=== PATIENT | male | born 1960 | race Caucasian/White ===

== ENCOUNTER → 2021-07-08 09:32 | Outpatient (BNVA) | payer BC, SELFPAY | PROVIDERS: PCP Internal Medicine; Visit Provider Urology | DX: R97.20 Elevated prostate specific antigen [PSA] (principal) ==

== ENCOUNTER → 2021-09-29 15:20 | Outpatient (BNVA) | payer BC, SELFPAY | PROVIDERS: PCP Internal Medicine; Visit Provider Urology ==

== ENCOUNTER 2021-11-16 11:32 | Outpatient (REF) | payer BC, SELFPAY ==
[2021-11-16 11:37] VITALS: BMI 25.1
[2021-11-16 11:38] VITALS: BP 144/89; PULSE 71; RESP 16; TEMP 36.4; O2SAT 97
--- NOTE | 2021-11-16 12:35 | W.PM.OPN ---
Operative Note Operative Note Date of Service: 11/16/21 Narrative: Preoperative diagnosis: Elevated PSA Postoperative diagnosis: Elevated PSA Procedure: 1. transrectal ultrasound measurement of prostate 2. transrectal ultrasound-guided pudendal nerve block 3. transrectal ultrasound-guided prostate biopsy 12 core Surgeon: Dr. Ariel Martel Anesthetic: Local Indications for procedure: Elevated PSA - 3.6 with high risk Urine DNA test Procedure: After informed consent was verified, the patient was brought into the procedure area and lay left-hand side down on the table. Patient identity confirmed. Perioperative antibiotics confirmed. Iodine 10cc with Gel was placed per rectum Ultrasound probe was placed per rectum The prostate was measured in 3 dimensions Total volume equals 45 gm There were no cystic structures and no calcifications noted and the prostate was homogeneous in nature A ultrasound-guided pudendal nerve block was performed using 10 cc of 1% lidocaine. 8 cc was placed at the base and 2 cc of the apex. A 12 core biopsy was performed with 6 cores each side. Two cores were taken at the apex, mid and base. Cores were spaced between lateral and medial. He tolerated the procedure well. Was able to ambulate to bathroom after 5 minutes. Printed instructions regarding antibiotic use and common side effects such as low-grade temperature and bleeding were given Pathology: 12 core prostate biopsy.
[2021-11-16 12:38] VITALS: BP 126/81; PULSE 68; RESP 16; O2SAT 96
== END 2021-11-16 11:33 | disposition home or self-care (01) ==
LOC: HO.MS 11:32
PROVIDERS: PCP Internal Medicine; Visit Provider Urology
PROC: (CPT 55700; principal; 2021-11-16 12:00)
DX: C61 Malignant neoplasm of prostate (principal); R97.20 Elevated prostate specific antigen [PSA]
CPT/HCPCS: 55700; 76942; 88305; 88344

== ENCOUNTER → 2021-11-23 08:54 | Outpatient (BNVA) | payer BC, SELFPAY | PROVIDERS: PCP Internal Medicine; Visit Provider Urology ==

== ENCOUNTER → 2022-01-06 08:39 | Outpatient (BNVA) | payer BC, SELFPAY | PROVIDERS: PCP Internal Medicine; Visit Provider Urology ==

== ENCOUNTER → 2022-12-07 13:21 | Outpatient (BNVA) | payer BC, SELFPAY | PROVIDERS: PCP Internal Medicine; Visit Provider Urology | DX: Z13.89 Encounter for screening for other disorder (principal) ==

== ENCOUNTER → 2023-02-08 11:19 | Outpatient (BNVA) | payer BC, SELFPAY | PROVIDERS: PCP Internal Medicine; Visit Provider Urology | DX: Z13.89 Encounter for screening for other disorder (principal) ==

== ENCOUNTER → 2023-04-20 11:49 | Outpatient (BNVA) | payer MEDICARE, BC, SELFPAY | PROVIDERS: PCP Internal Medicine; Visit Provider Urology | DX: C61 Malignant neoplasm of prostate (principal) | CPT/HCPCS: Q3014 ==

== ENCOUNTER 2023-05-01 07:43 | Day surgery (SDC) | payer MEDICARE, BC, SELFPAY ==
[2023-04-26 14:31] VITALS: BMI 26.5
--- NOTE | 2023-04-28 10:41 | HO.ANESPROP2 ---
Documented by User: Mariana Donato NP 04/28/23 10:42 HPI - Anesthesia Eval Consult details Narrative: 63yo M for Targeted Prostate Needle Biopsy PMFSH Active Problems Active Problems: All Active Problems (Updated 04/26/23 @ 14:35 by Ximena Judd, RN) Prostate cancer (Acute) Benign prostatic hyperplasia without lower urinary tract symptoms (Acute) Elevated PSA (Acute) Past Medical History Medical History Benign prostatic hyperplasia without lower urinary tract symptoms Elevated cholesterol Elevated PSA Incomplete emptying of bladder Prostate cancer Weak urinary stream Surgical History Surgical History History of esophagogastroduodenoscopy (EGD) History of surgical removal of pilonidal cyst Hx of hernia repair Hx of prostate biopsy Social History Social History Patient Tobacco Use Status: Never used Tobacco Use of substances other than those prescribed or required for medical reasons: No Are you DNR?: No Advance Directives: No Advance Directives Information Provided: Yes Meds Allergies Allergy/AdvReac Type Severity Reaction Status Date / Time No Known Allergies Allergy Verified 04/20/23 11:50 Home Medications Medication Instructions Recorded Confirmed Last Taken Type atorvastatin 40 mg tablet 40 mg PO DAILY 12/07/22 04/26/23 Unknown History Exam Exam Date and Time: April 28, 2023 1041 Height,Weight and Vital Signs: Height 5 ft 10 in Weight 83.915 kg Assessment and Plan Assessment Anesthesia Assessment: Chart Reviewed Documented by User: Gina Quintanilla MD 05/01/23 10:02 PMFSH Active Problems Active Problems: All Active Problems (Updated 05/01/23 @ 09:31 by Gina Quintanilla MD) Prostate cancer (Acute) Benign prostatic hyperplasia without lower urinary tract symptoms (Acute) Elevated PSA (Acute) Past Medical History Medical History Benign prostatic hyperplasia without lower urinary tract symptoms Elevated cholesterol Elevated PSA Incomplete emptying of bladder Prostate cancer Weak urinary stream Family History Family history of problems with anesthesia: No Surgical History Surgical History History of esophagogastroduodenoscopy (EGD) History of surgical removal of pilonidal cyst Hx of hernia repair Hx of prostate biopsy History of Problems with Anesthesia: No Social History Social History Patient Tobacco Use Status: Never used Tobacco Use of substances other than those prescribed or required for medical reasons: No Are you DNR?: No Advance Directives: No Advance Directives Information Provided: Yes Meds Allergies Allergy/AdvReac Type Severity Reaction Status Date / Time No Known Allergies Allergy Verified 04/20/23 11:50 Home Medications Medication Instructions Recorded Confirmed Last Taken Type atorvastatin 40 mg tablet 40 mg PO DAILY 12/07/22 04/26/23 Unknown History Exam Height,Weight and Vital Signs: Height 5 ft 10 in Weight 83.915 kg Vital Signs Temp Pulse Resp BP Pulse Ox O2 Del Method 05/01/23 08:09 97.4 F 79 18 148/83 H 95 Room Air Airway Mallampati Class: III (Small mouth opening ) TM Dist: >3cm Neck ROM: Full Loose/Missing/Broken Teeth: No (Denies broken, loose, missing teeth) Heart: RRR Lungs: CTAB Assessment and Plan Assessment Anesthesia Assessment: Anesthesia Plan Discussed Final Anesthetic Review Family History of Problems with Anesthesia: No History of Problems with Anesthesia: No NPO: Yes ASA Class: II Final Preanesthetic Review: No Changes in Pt Med Stat, Meds/Allgs Chart Reviewed, Consent Obtained/Reviewed and Anes Risks/Benef Reviewed Patient Risk: Low Procedure Risk: Low Assessment/Block/Sedation in SS: Assess/Block/Sedation-SS Anesthetic Plan Anesthetic Plan: GA Disposition: Standard PACU
[2023-05-01 08:00] VITALS: BMI 25.8
[2023-05-01 08:09] VITALS: BP 148/83; PULSE 79; RESP 18; TEMP 36.3; O2SAT 95
[2023-05-01] MEDS: Lactated Ringers 1,000 ML 100 ML IVCONT (08:22)
--- NOTE | 2023-05-01 09:55 | MHC.SHP ---
Pre-Procedural Eval Section A Date of Service: 05/01/23 The patient is an INPATIENT: No Changes since office visit: No Cold of Flu in the past 2 weeks, No New Medical Problems, No Changes in Medication and No Patient answered all questions The History & Physical has been completed within 30 days and I have reviewed it.: No Section B Chief Complaint: Prostate cancer Details of Present Illness: low-grade prostate cancer, staging Relevant Family History (Specify if Yes): No Relevant Social History: None Present Medications: see Short Stay Collaborative assessment Medical History: No relevant PMH History of Previous Operations: Relevant previous surgery/procedure and date(s) Allergies: Allergies Allergy/AdvReac Type Severity Reaction Status Date / Time No Known Allergies Allergy Verified 04/20/23 11:50 Review of Systems Sugical H&P ROS: Negative: Constitution, Cardiovascular, Respiratory, Neurological, Psychiatric, Hem-Onc, Allergic/Immunologic, Gastrointestinal, Genitourinary, Musculoskeletal, Integumentary, Endocrine and Eyes/Ears/Nose/Throat Exam Surgical H&P Exam: Normal: HEENT, Normal: Heart, Normal: Lungs, Normal: Extremities, Normal: Abdomen, Normal: Skin and Normal: Neurological Plan Diagnosis/Plan: Unchanged ( targeted prostate biopsy) I have reviewed the history and physical and performed a pertinent physical examination on my patient. No changes have occurred unless specified. Time Spent With Patient Time: Total time managing care of this patient today ____ minutes.
[2023-05-01] MEDS: levoFLOXacin 500 MG TABLET PO (09:59)
[2023-05-01 11:01] VITALS: BP 130/75; PULSE 68; RESP 14; TEMP 36.2; O2SAT 96
--- NOTE | 2023-05-01 11:02 | P.OP_ITS ---
Operative Note Operative Note Date of Service: 05/01/23 Narrative: Preoperative diagnosis: Prostate Cancer Postoperative diagnosis: Prostate Cancer Procedure: 2. transrectal ultrasound-guided pudendal nerve block 3. MRI-US fusion image registration performed 3. transperineal ultrasound-guided prostate biopsy 16 core including targets Surgeon: Dr. Ariel Martel Anesthetic: Sedation plus local Indications for procedure: Prostate Cancer - low-grade, low volume Procedure: After informed consent was verified, the patient was brought into the procedure area. Patient identity confirmed. Perioperative antibiotics confirmed. Safety pause time out performed. Anesthesia performed per protocol Ultrasound probe was placed per rectum Focalis software and hardware platform used An ultrasound-guided pudendal nerve block was performed using 10 cc of 1% lidocaine. 8 cc was placed at the base and 2 cc of the apex. Perineal injection of local. Ultrasound placement was made with grid calibration for height and prostate diameter in both the transverse and longitudinal planes. Once grid calibration was confirmed ultrasound acquisition was performed in the transverse fashion. Three dimensional ultrasound model was created. The planned needle targeting based on prior acquisition of MRI imaging was overlaid on the ultrasound images and targets confirmed through ultrasound review. Based on pre -planning evaluation 16 targets had been identified. These included for targets of PiRADs 3 right prostate mid anterior identified lesion/s.. He tolerated the procedure well. Was transferred to stable condition in the PACU. Printed instructions regarding antibiotic use and common side effects such as lo w-grade temperature, potential infection and bleeding were given Pathology: 16 core prostate biopsy CPT 84685 Modifier 22 for complexity of planning and procedure execution
[2023-05-01 11:06] VITALS: BP 131/79; PULSE 67; RESP 14; O2SAT 97
[2023-05-01 11:11] VITALS: BP 127/72; PULSE 61; RESP 14; O2SAT 97
[2023-05-01 11:16] VITALS: BP 127/77; PULSE 62; RESP 14; O2SAT 97
[2023-05-01 11:31] VITALS: BP 120/77; PULSE 61; RESP 14; TEMP 36.2; O2SAT 97
== END 2023-05-01 12:23 | disposition home or self-care (01) ==
PROVIDERS: PCP Pediatrics; Visit Provider Urology
PROC: (CPT 55700; principal; 2023-05-01 09:50)
DX: C61 Malignant neoplasm of prostate (principal); R97.20 Elevated prostate specific antigen [PSA]; N40.1 Benign prostatic hyperplasia with lower urinary tract symptoms; R39.14 Feeling of incomplete bladder emptying; R39.12 Poor urinary stream
CPT/HCPCS: 55700; 88305; 88344; J2795; J3010

== ENCOUNTER 2023-05-26 09:48 | Outpatient (AMB) | payer MEDICARE, BC, SELFPAY ==
--- NOTE | 2023-05-26 09:53 | MHC.OFFVIS ---
Intake Intake Visit Reasons: post bx results Intake Note: Patient is present for Telephone Urology Med: Finasteride Antibiotic Allergy: NONE Blood Thinner:None Allergies No Known Allergies Allergy (Verified 04/20/23 11:50) HPI HPI Comments History of Present Illness Details Grayson Esteves is a very pleasant male. He is a patient of Dr. Paulson. He is seen for further evaluation of the following urologic issues. - Prostate Cancer Telemedicine Evaluation 15 min Consultation Doximity Carlos Video attempted Post biopsy followup Minimal change to volume of disease Grade group upgrade to grade group 2 favorable intermediate May continue surveillance due to low volume of overall disease Prostate Cancer - Low volume Low grade - Nov 2021, repeat biopsy 05/05 PSA 12/04 3.6, 05/04 4.4, 08/04 4.0, 12/05 4.April - US/MRI fusion biopsy [place] score:? 7 (3+4) (b 2.0) 6 (3+3) (E 2.0, d 3.0, C 1.5) Tumor quantitation: % of tissue involved: 5% PPF: SVI: PNI: NAD Prostate cancer diagnosed by Dr. Martel Nov 2021 PSA at dx - 3.6 - 45 g on ultrasound Pathologic stage T1c [employer] - 12/04 active surveillance score 3.6, DSM 1.9% November 2021 Histologic grade: [place] score: 3+3=6 Grade group: 1 Tumor quantitation:? Number cores positive: 4 - LBM 5%, RBL 40%, RBM 10%, RML 5% - 60%/1200% Total number of cores: 12? % of tissue involved: 5% of all tissue examined Periprostatic fat inv.: Not identified Seminal vesicle inv.:Not identified Perineural inv.:Not identified LVI:Not identified Prostate MRI - 01/04 40cc prostate - 1 cm lesion right base PiRADS 4, no evidence contention PFSH Medical History Benign prostatic hyperplasia without lower urinary tract symptoms Elevated cholesterol Elevated PSA Incomplete emptying of bladder Prostate cancer Weak urinary stream Surgical History History of esophagogastroduodenoscopy (EGD) History of surgical removal of pilonidal cyst Hx of hernia repair Hx of prostate biopsy Social History Patient Tobacco Use Status: Never used Tobacco Review of Systems Const All systems reviewed & are unremarkable except as noted in HPI and below Reports no additional complaints Resp Reports no additional complaints GI Reports no additional complaints Reports as per HPI Musc Reports no additional complaints Physical Exam Telemedicine evaluation Appropriate responses Regular breathing rate and rhythm HEENT Head: Yes normal to inspection Ears: hearing grossly normal bilaterally Eyes General: appearance normal, both eyes and all related structures Neck Neck: Yes normal visual inspection Chest Chest palpation & inspection: normal inspection of the chest Resp Effort & Inspection: normal respiratory effort and able to speak in complete sentences Assessment & Plan Assessment & Plan (1) Prostate cancer: Comment: Nov 2020 - Gl 3+3 - Prolaris Active Surveillance Code(s): C61 - Malignant neoplasm of prostate (2) Benign prostatic hyperplasia without lower urinary tract symptoms: Code(s): N40.0 - Benign prostatic hyperplasia without lower urinary tract symptoms Plan 6 month follow-up PSA Orders: Orders Prostate Specific Antigen 6 Months C61 - Malignant neoplasm of prostate Patient Instructions: Imaging studies, laboratory and physical exam results were discussed and reviewed in detail. No major barriers to patient understanding were identified. An opportunity to ask questions regarding the treatment plan was provided. All questions were answered. The patient expressed understanding and agreement with the above treatment plan. The patient is aware they should contact our office by phone for worsening of their current condition or the appearance of new urologic symptoms. Compliance is encouraged with any medications and followup testing that is ordered. It is a privilege to participate in the urologic care of your patient. If you have any questions or concerns regarding treatment for the above conditions, or other urologic issues, please do not hesitate to contact me. The office telephone contact is [phone]. This note is constructed using voice recognition software. While every effort has been made to ensure accuracy dental resident errors may have been included. Yours sincerely, Dr Ariel Martel MD, [facility] - Urology Providers of Expert, Compassionate Care for the Genitourinary System Telehealth Telehealth Location of provider rendering services: practice address Location of patient: address on file Patient Identification confirmed using: Name, : Yes Telehealth method: video Patient verbally consented to treatment: Yes Patient verbally consented to billing insurance company: Yes Patient informed of any privacy concerns related to visit: Yes Coding Level of Care Code Tele Est Pt Level 3 (94100) Diagnoses Prostate cancer C61 Benign prostatic hyperplasia without lower urinary tract symptoms N40.0
== END 2023-05-26 10:13 | disposition home or self-care (01) ==
LOC: HO.HUSH 09:48
PROVIDERS: PCP Pediatrics; Visit Provider Urology
DX: C61 Malignant neoplasm of prostate (principal); N40.0 Benign prostatic hyperplasia without lower urinary tract symptoms
CPT/HCPCS: 99213

== ENCOUNTER → 2023-05-26 09:48 | Outpatient (BNVA) | payer MEDICARE, BC, SELFPAY | PROVIDERS: PCP Pediatrics; Visit Provider Urology | DX: C61 Malignant neoplasm of prostate (principal); N40.0 Benign prostatic hyperplasia without lower urinary tract symptoms | CPT/HCPCS: Q3014 ==

== ENCOUNTER 2023-11-24 10:29 | Outpatient (AMB) | payer MEDICARE, BC, SELFPAY ==
--- NOTE | 2023-11-24 10:37 | A.OFFVIS_ITS ---
Intake Intake Visit Reasons: 6M/PSA(set) Intake Note: Patient is Present for Follow Up PSA Urology Medication: Finasteride Antibiotic Allergies: None Blood Thinners: None PVR: 16 Allergies No Known Allergies Allergy (Verified 04/20/23 11:50) HPI HPI Comments History of Present Illness Details Grayson Esteves is a very pleasant male. He is a patient of Dr. Paulson. He is seen for further evaluation of the following urologic issues. - Prostate Cancer Sudden PSA jump 12/06 8.6 Discussed possible causes Repeat PSA in 2-3 weeks If persistent elevation would move to prostate cancer therapy either external beam radiation or radical prostatectomy Prostate Cancer - Low volume Low grade - Nov 2021, repeat biopsy 05/05 PSA 12/04 3.6, 05/04 4.4, 08/04 4.0, 12/05 4.April - US/MRI fusion biopsy [place] score:? 7 (3+4) (b 2.0) 6 (3+3) (E 2.0, d 3.0, C 1.5) Tumor quantitation: % of tissue involved: 5% PPF: SVI: PNI: NAD Prostate cancer diagnosed by Dr. Martel Nov 2021 PSA at dx - 3.6 - 45 g on ultrasound Pathologic stage T1c [employer] - 12/04 active surveillance score 3.6, DSM 1.9% November 2021 Histologic grade: [place] score: 3+3=6 Grade group: 1 Tumor quantitation:? Number cores positive: 4 - LBM 5%, RBL 40%, RBM 10%, RML 5% - 60%/1200% Total number of cores: 12? % of tissue involved: 5% of all tissue examined Periprostatic fat inv.: Not identified Seminal vesicle inv.:Not identified Perineural inv.:Not identified LVI:Not identified Prostate MRI - 01/04 40cc prostate - 1 cm lesion right base PiRADS 4, no evidence contention [facility] Medical History Benign prostatic hyperplasia without lower urinary tract symptoms Elevated cholesterol Elevated PSA Incomplete emptying of bladder Prostate cancer Weak urinary stream Surgical History History of esophagogastroduodenoscopy (EGD) History of surgical removal of pilonidal cyst Hx of hernia repair Hx of prostate biopsy Social History Patient Tobacco Use Status: Never used Tobacco Review of Systems Const Denies chills and Denies fever(s) Card Reports no additional complaints and Denies syncope Resp Denies cough GI Denies abdominal pain and Denies heartburn Reports as per HPI and Denies change in libido Neuro Denies syncope Psych Denies change in libido Endo Denies change in libido Physical Exam Const General: cooperative, healthy appearing, comfortable and no acute distress Orientation/consciousness: patient oriented x3 HEENT Face and sinus: Yes normal facial exam Mouth: moist mucous membranes Neck Neck: Yes normal visual inspection, Yes full ROM and Yes trachea midline Chest Chest palpation & inspection: normal inspection of the chest Resp Effort & Inspection: normal respiratory effort, able to speak in complete sentences and no respiratory distress GI Inspection: Yes normal to inspection Back/Spine/Pelvis Cervical Spine: normal cervical lordosis Thoracic/Lumbar Spine: thoracic and lumbar spine normal to inspection Skin General skin exam: no rashes or lesions noted Neuro General: patient oriented x3, gait normal, tone normal and moves all extremities Extrem General: Yes normal to inspection and Yes capillary refill normal Office Procedures Post Void Residual Post Residual Void Post Void Residual (PVR): 16 [id number]-Virp Void Residual by ultrasound Assessment & Plan Assessment & Plan (1) Prostate cancer: Comment: Nov 2020 - Gl 3+3 - Prolaris Active Surveillance Code(s): C61 - Malignant neoplasm of prostate Plan Repeat PSA in 2-3 weeks Discussed possible treatment options prostate cancer Orders: Orders AMB Post Void Residual by ultrasound Today N40.0 - Benign prostatic hyperplasia without lower urinary tract symptoms PSA,Total (Free>4and<10) 2 Weeks C61 - Malignant neoplasm of prostate, E11.69 - Type 2 diabetes mellitus with other specified complication, N52.1 - Erectile dysfunction due to diseases classified elsewhere Patient Instructions: Imaging studies, laboratory and physical exam results were discussed and reviewed in detail. No major barriers to patient understanding were identified. An opportunity to ask questions regarding the treatment plan was provided. All questions were answered. The patient expressed understanding and agreement with the above treatment plan. The patient is aware they should contact our office by phone for worsening of their current condition or the appearance of new urologic symptoms. Compliance is encouraged with any medications and followup testing that is ordered. It is a privilege to participate in the urologic care of your patient. If you have any questions or concerns regarding treatment for the above conditions, or other urologic issues, please do not hesitate to contact me. The office telephone contact is [phone]. This note is constructed using voice recognition software. While every effort h as been made to ensure accuracy brush head maker errors may have been included. Yours sincerely, Dr Ariel Martel MD, [facility] - Urology Providers of Expert, Compassionate Care for the Genitourinary System Coding Level of Care Code Est Pt Level 4 (15816) Diagnoses Prostate cancer C61 CPT Codes Post Residual Void - PVR CPT Code: 30882-Iiww Void Residual by ultrasound ([id number])
== END 2023-11-24 11:12 | disposition home or self-care (01) ==
PROVIDERS: PCP Pediatrics; Visit Provider Urology
DX: C61 Malignant neoplasm of prostate (principal)
CPT/HCPCS: 99213

== ENCOUNTER → 2023-11-24 10:29 | Outpatient (BNVA) | payer MEDICARE, BC, SELFPAY | PROVIDERS: PCP Pediatrics; Visit Provider Urology | DX: C61 Malignant neoplasm of prostate (principal); N40.0 Benign prostatic hyperplasia without lower urinary tract symptoms; E11.69 Type 2 diabetes mellitus with other specified complication; N52.1 Erectile dysfunction due to diseases classified elsewhere | CPT/HCPCS: 51798; 99212 ==

== ENCOUNTER 2023-12-21 08:14 | Outpatient (AMB) | payer MEDICARE, BC, SELFPAY ==
--- NOTE | 2023-12-21 08:15 | A.OFFVIS_ITS ---
Intake Intake Visit Reasons: 4w/PSA(brl) Intake Note: Patient presents today for a follow-up Meds- Finasteride Allergies to Antibiotic- No Known Allergies Blood Thinner- None Allergies No Known Allergies Allergy (Verified 12/21/23 08:16) Medication List - Last Reconciled 12/21/23 by Ariel Martel MD atorvastatin 40 mg PO DAILY finasteride 5 mg PO DAILY 90 days HPI HPI Comments History of Present Illness Details Grayson Esteves is a very pleasant male. He is a patient of Dr. Paulson. He is seen for further evaluation of the following urologic issues. - Prostate Cancer Telemedicine Evaluation 15 min Consultation ticketea Carlos Video attempted PSA followup - drop to 3.8 Good news Continue with Q 4 month PSA check Prostate Cancer - Low volume Low grade - Nov 2021, repeat biopsy 05/05 PSA 12/04 3.6, 05/04 4.4, 08/04 4.0, 12/05 4.0, 12/06 8.6, 01/06 3.20 April 2023 - US/MRI fusion biopsy [place] score:? 7 (3+4) (b 2.0) 6 (3+3) (E 2.0, d 3.0, C 1.5) Tumor quantitation: % of tissue involved: 5% PPF: SVI: PNI: NAD Prostate cancer diagnosed by Dr. Martel Nov 2021 PSA at dx - 3.6 - 45 g on ultrasound Pathologic stage T1c [employer] - 12/04 active surveillance score 3.6, DSM 1.9% November 2021 Histologic grade: [place] score: 3+3=6 Grade group: 1 Tumor quantitation:? Number cores positive: 4 - LBM 5%, RBL 40%, RBM 10%, RML 5% - 60%/1200% Total number of cores: 12? % of tissue involved: 5% of all tissue examined Periprostatic fat inv.: Not identified Seminal vesicle inv.:Not identified Perineural inv.:Not identified LVI:Not identified Prostate MRI - 01/04 40cc prostate - 1 cm lesion right base PiRADS 4, no evidence contention PFSH Medical History Elevated cholesterol Prostate cancer Incomplete emptying of bladder Weak urinary stream Benign prostatic hyperplasia without lower urinary tract symptoms Elevated PSA Surgical History History of esophagogastroduodenoscopy (EGD) Hx of prostate biopsy History of surgical removal of pilonidal cyst Hx of hernia repair Social History Patient Tobacco Use Status: Never used Tobacco Review of Systems Const All systems reviewed & are unremarkable except as noted in HPI and below Reports no additional complaints Resp Reports no additional complaints GI Reports no additional complaints Reports as per HPI Musc Reports no additional complaints Physical Exam Telemedicine evaluation Appropriate responses Regular breathing rate and rhythm HEENT Head: Yes normal to inspection Ears: hearing grossly normal bilaterally Eyes General: appearance normal, both eyes and all related structures Neck Neck: Yes normal visual inspection Chest Chest palpation & inspection: normal inspection of the chest Resp Effort & Inspection: normal respiratory effort and able to speak in complete sentences Assessment & Plan Assessment & Plan (1) Prostate cancer: Comment: Nov 2020 - Gl 3+3 - Prolaris Active Surveillance Code(s): C61 - Malignant neoplasm of prostate Plan Four month follow-up PSA Orders: Orders PSA,Total (Free>4and<10) 4 Months C61 - Malignant neoplasm of prostate Patient Instructions: Imaging studies, laboratory and physical exam results were discussed and reviewed in detail. No major barriers to patient understanding were identified. An opportunity to ask questions regarding the treatment plan was provided. All questions were answered. The patient expressed understanding and agreement with the above treatment plan. The patient is aware they should contact our office by phone for worsening of their current condition or the appearance of new urologic symptoms. Compliance is encouraged with any medications and followup testing that is ordered. It is a privilege to participate in the urologic care of your patient. If you have any questions or concerns regarding treatment for the above conditions, or other urologic issues, please do not hesitate to contact me. The office telephone contact is [phone]. This note is constructed using voice recognition software. While every effort has been made to ensure accuracy parachute taper errors may have been included. Yours sincerely, Dr Ariel Martel MD, [facility] - Urology Providers of Expert, Compassionate Care for the Genitourinary System Telehealth Telehealth Location of provider rendering services: practice address Location of patient: address on file Patient Identification confirmed using: Name, : Yes Telehealth method: video Patient verbally consented to treatment: Yes Patient verbally consented to billing insurance company: Yes Patient informed of any privacy concerns related to visit: Yes Coding Level of Care Code Tele Est Pt Level 3 (74161) Diagnoses Prostate cancer C61
== END 2023-12-21 09:26 | disposition home or self-care (01) ==
LOC: HO.HUSH 08:14
PROVIDERS: PCP Pediatrics; Visit Provider Urology
DX: C61 Malignant neoplasm of prostate (principal)
CPT/HCPCS: 99213

== ENCOUNTER → 2023-12-21 08:14 | Outpatient (BNVA) | payer MEDICARE, BC, SELFPAY | PROVIDERS: PCP Pediatrics; Visit Provider Urology ==

== ENCOUNTER 2024-04-16 09:15 | Outpatient (AMB) | payer MEDICARE, BC, SELFPAY ==
--- NOTE | 2024-04-16 09:15 | MHC.OFFVIS ---
Intake Visit Reasons: 4m/PSA(set) Intake Note: Patient is Present for Telephone Follow Up PSA Urology Med: Finasteride Antibiotic Allergy: None Blood Thinner: None Allergies No Known Allergies Allergy (Verified 04/16/24 09:16) Medication List - Last Reconciled 04/16/24 by Ariel Martel MD atorvastatin 40 mg PO DAILY finasteride 5 mg PO DAILY 90 days HPI Comments Details: Grayson Esteves is a very pleasant male. He is a patient of Dr. Paulson. He is seen for further evaluation of the following urologic issues. - Prostate Cancer Telemedicine Evaluation 15 min Consultation [facility] Video attempted PSA similar at 4.7 Continue with Q 4 month PSA check Remains off finasteride Discussed no sex the night before, no coffee morning of the test Prostate Cancer - Low volume Low grade - Nov 2021, repeat biopsy 05/05 PSA 12/04 3.6, 05/04 4.4, 08/04 4.0, 12/05 4.0, 12/06 8.6, 01/06 3.8, 04/05 4.19 April 2023 - US/MRI fusion biopsy [place] score:? 7 (3+4) (b 2.0) 6 (3+3) (E 2.0, d 3.0, C 1.5) Tumor quantitation: % of tissue involved: 5% PPF: SVI: PNI: NAD Prostate cancer diagnosed by Dr. Martel Nov 2021 PSA at dx - 3.6 - 45 g on ultrasound Pathologic stage T1c [facility] - 12/04 active surveillance score 3.6, DSM 1.9% November 2021 Histologic grade: Aristides score: 3+3=6 Grade group: 1 Tumor quantitation:? Number cores positive: 4 - LBM 5%, RBL 40%, RBM 10%, RML 5% - 60%/1200% Total number of cores: 12? % of tissue involved: 5% of all tissue examined Periprostatic fat inv.: Not identified Seminal vesicle inv.:Not identified Perineural inv.:Not identified LVI:Not identified Prostate MRI - 01/04 40cc prostate - 1 cm lesion right base PiRADS 4, no evidence contention [facility] Medical History Elevated cholesterol Prostate cancer Incomplete emptying of bladder Weak urinary stream Benign prostatic hyperplasia without lower urinary tract symptoms Elevated PSA Surgical History History of esophagogastroduodenoscopy (EGD) Hx of prostate biopsy History of surgical removal of pilonidal cyst Hx of hernia repair Social History Patient Tobacco Use Status: Never used Tobacco Review of Systems Const All systems reviewed & are unremarkable except as noted in HPI and below Reports no additional complaints Resp Reports no additional complaints GI Reports no additional complaints Reports as per HPI Musc Reports no additional complaints Physical Exam Telemedicine evaluation Appropriate responses Regular breathing rate and rhythm HEENT Head: Yes normal to inspection Ears: hearing grossly normal bilaterally Eyes General: appearance normal, both eyes and all related structures Neck Neck: Yes normal visual inspection Chest Chest palpation & inspection: normal inspection of the chest Resp Effort & Inspection: normal respiratory effort and able to speak in complete sentences Telehealth Telehealth Location of provider rendering services: practice address Location of patient: address on file Patient Identification confirmed using: Name, : Yes Telehealth method: voice only Patient verbally consented to treatment: Yes Patient verbally consented to billing insurance company: Yes Patient informed of any privacy concerns related to visit: Yes Assessment & Plan Assessment & Plan (1) Prostate cancer: Comment: Nov 2020 - Gl 3+3 - Prolaris Active Surveillance Code(s): C61 - Malignant neoplasm of prostate Category: Medical Plan Four month follow-up PSA Orders: Orders PSA,Total (Free>4and<10) 4 Months C61 - Malignant neoplasm of prostate Patient Instructions: Imaging studies, laboratory and physical exam results were discussed and reviewed in detail. No major barriers to patient understanding were identified. An opportunity to ask questions regarding the treatment plan was provided. All questions were answered. The patient expressed understanding and agreement with the above treatment plan. The patient is aware they should contact our office by phone for worsening of their current condition or the appearance of new urologic symptoms. Compliance is encouraged with any medications and followup testing that is ordered. It is a privilege to participate in the urologic care of your patient. If you have any questions or concerns regarding treatment for the above conditions, or other urologic issues, please do not hesitate to contact me. The office telephone contact is [phone]. This note is constructed using voice recognition software. While every effort has been made to ensure accuracy director cardiology errors may have been included. Yours sincerely, Dr Ariel Martel MD, [facility] - Urology Providers of Expert, Compassionate Care for the Genitourinary System Coding Level of Care Code Tele Est Pt Level 3 (79344) Diagnoses Prostate cancer C61
== END 2024-04-16 10:09 | disposition home or self-care (01) ==
LOC: HO.HUSH 09:15
PROVIDERS: PCP Pediatrics; Visit Provider Urology
DX: C61 Malignant neoplasm of prostate (principal)
CPT/HCPCS: 99442

== ENCOUNTER → 2024-04-16 09:15 | Outpatient (BNVA) | payer MEDICARE, BC, SELFPAY | PROVIDERS: PCP Pediatrics; Visit Provider Urology ==

== ENCOUNTER 2024-08-14 10:53 | Outpatient (AMB) | payer MEDICARE, BC, SELFPAY ==
--- NOTE | 2024-08-14 11:01 | A.OFFVIS_ITS ---
Intake Visit Reasons: 4M Follow Up-PSA(Elevated) Intake Note: Patient is Present for 4M Follow Up PSA Urology Med: Finasteride Antibiotic Allergy: None Blood Thinner: None Pmp Certified Project Manager Required: No Allergies No Known Allergies Allergy (Verified 08/14/24 11:02) Medication List - Last Reconciled 08/14/24 by Ariel Martel MD atorvastatin 40 mg PO DAILY finasteride 5 mg PO DAILY 90 days HPI Comments Details: Grayson Esteves is a very pleasant male. He is a patient of Dr. Juan colon. He is seen for further evaluation of the following urologic issues. - Prostate Cancer Increased to 5.7 Continue with Q 4 month PSA check Remains off finasteride Rise consistent with coming off finasteride Fusion biopsy had showed low volume disease Repeat Prolaris on most recent biopsy MRI in 4 months Prostate Cancer - Low volume Low grade - Nov 2021, repeat biopsy 05/05 PSA 12/04 3.6, 05/04 4.4, 08/04 4.0, 12/05 4.0, 12/06 8.6, 01/06 3.8, 04/05 4.7, 08/06 5.19 April 2023 - US/MRI fusion biopsy Aristides score:? 7 (3+4) (b 2.0) 6 (3+3) (E 2.0, d 3.0, C 1.5) Tumor quantitation: % of tissue involved: 5% PPF: SVI: PNI: NAD Prostate cancer diagnosed by Dr. Martel Nov 2021 PSA at dx - 3.6 - 45 g on ultrasound Pathologic stage T1c [facility] - 12/04 active surveillance score 3.6, DSM 1.9% November 2021 Histologic grade: [place] score: 3+3=6 Grade group: 1 Tumor quantitation:? Number cores positive: 4 - LBM 5%, RBL 40%, RBM 10%, RML 5% - 60%/1200% Total number of cores: 12? % of tissue involved: 5% of all tissue examined Periprostatic fat inv.: Not identified Seminal vesicle inv.:Not identified Perineural inv.:Not identified LVI:Not identified Prostate MRI - 01/04 40cc prostate - 1 cm lesion right base PiRADS 4, no evidence contention [facility] Medical History Elevated cholesterol Prostate cancer Incomplete emptying of bladder Weak urinary stream Benign prostatic hyperplasia without lower urinary tract symptoms Elevated PSA Surgical History History of esophagogastroduodenoscopy (EGD) Hx of prostate biopsy History of surgical removal of pilonidal cyst Hx of hernia repair Social History Patient Tobacco Use Status: Never used Tobacco Review of Systems Const Denies chills and Denies fever(s) Card Reports no additional complaints and Denies syncope Resp Denies cough GI Denies abdominal pain and Denies heartburn Reports as per HPI and Denies change in libido Neuro Denies syncope Psych Denies change in libido Endo Denies change in libido Physical Exam Const General: cooperative, healthy appearing, comfortable and no acute distress Orientation/consciousness: patient oriented x3 HEENT Face and sinus: Yes normal facial exam Mouth: moist mucous membranes Neck Neck: Yes normal visual inspection, Yes full ROM and Yes trachea midline Chest Chest palpation & inspection: normal inspection of the chest Resp Effort & Inspection: normal respiratory effort, able to speak in complete sentences and no respiratory distress GI Inspection: Yes normal to inspection Back/Spine/Pelvis Cervical Spine: normal cervical lordosis Thoracic/Lumbar Spine: thoracic and lumbar spine normal to inspection Skin General skin exam: no rashes or lesions noted Neuro General: patient oriented x3, gait normal, tone normal and moves all extremities Extrem General: Yes normal to inspection and Yes capillary refill normal Results AMB Urinalysis, Automated UA Leukoctes 15 Randa/uL Last Edit by LOUIS Ryan on 08/14/24 11:18 UA Nitrite Negative Last Edit by LOUIS Ryan on 08/14/24 11:18 UA Urobilinogen 0.2 mg/dL Last Edit by LOUIS Ryan on 08/14/24 11:1 8 UA Protein 15 mg/dL Last Edit by LOUIS Ryan on 08/14/24 11:18 UA pH 6.0 Last Edit by LOUIS Ryan on 08/14/24 11:18 UA Blood 0 Edward/uL Last Edit by LOUIS Ryan on 08/14/24 11:18 UA Specific Eagle 1.015 Last Edit by LOUIS Ryan on 08/14/24 11: 18 UA Ketone Negative Last Edit by LOUIS Ryan on 08/14/24 11:18 UA Bilirubin 1 mg/dL Last Edit by LOUIS Ryan on 08/14/24 11:18 UA Glucose 0 mg/dL Last Edit by LOUIS Ryan on 08/14/24 11:18 Results Reviewed Results Reviewed: Laboratory Last Values Urine pH (Auto) 6.0 08/14/24 11:17 Specific [place] (Auto) 1.015 08/14/24 11:17 Urine Protein (Auto) 15 mg/dL 08/14/24 11:17 Glucose (UA)(Auto) 0 mg/dL 08/14/24 11:17 Urine Ketones (Auto) Negative 08/14/24 11:17 Urine Blood (Auto) 0 Edward/uL 08/14/24 11:17 Urine Nitrite (Auto) Negative 08/14/24 11:17 Urine Bilirubin (Auto) 1 mg/dL 08/14/24 11:17 Urine Urobilinogen (Auto) 0.2 mg/dL 08/14/24 11:17 Leukocyte Esterase (Auto) 15 Randa/uL 08/14/24 11:17 Assessment & Plan Assessment & Plan (1) Prostate cancer: Comment: Nov 2020 - Gl 3+3 - Prolaris Active Surveillance Code(s): C61 - Malignant neoplasm of prostate Category: Medical Plan Four month follow-up Orders: Orders AMB Urinalysis Automated Today Z13.9 - Encounter for screening, unspecified MR pelvis wo/w con 4 Months C61 - Malignant neoplasm of prostate Prostate Specific Antigen 4 Months C61 - Malignant neoplasm of prostate Patient Instructions: Imaging studies, laboratory and physical exam results were discussed and reviewed in detail. No major barriers to patient understanding were identified. An opportunity to ask questions regarding the treatment plan was provided. All questions were answered. The patient expressed understanding and agreement with the above treatment plan. The patient is aware they should contact our office by phone for worsening of their current condition or the appearance of new urologic symptoms. Compliance is encouraged with any medications and followup testing that is ordered. It is a privilege to participate in the urologic care of your patient. If you have any questions or concerns regarding treatment for the above conditions, or other urologic issues, please do not hesitate to contact me. The office telephone contact is [phone]. This note is constructed using voice recognition software. While every effort has been made to ensure accuracy retail pos specialist errors may have been included. Yours sincerely, Dr Ariel Martel MD, [facility] - Urology Providers of Expert, Compassionate Care for the Genitourinary System Coding Level of Care Code Est Pt Level 4 (71348) Diagnoses Prostate cancer C61
== END 2024-08-14 11:50 | disposition home or self-care (01) ==
PROVIDERS: PCP Pediatrics; Visit Provider Urology
DX: C61 Malignant neoplasm of prostate (principal); Z13.9 Encounter for screening, unspecified
CPT/HCPCS: 99214

== ENCOUNTER → 2024-08-14 10:53 | Outpatient (BNVA) | payer MEDICARE, BC, SELFPAY | PROVIDERS: PCP Pediatrics; Visit Provider Urology | DX: C61 Malignant neoplasm of prostate (principal) | CPT/HCPCS: 81003; 99212 ==

== ENCOUNTER → 2024-12-13 09:16 | Outpatient (BNV) | payer MEDICARE, BC, SELFPAY | PROVIDERS: PCP Internal Medicine; Visit Provider Radiology Diagnostic Radiology | DX: C61 Malignant neoplasm of prostate (principal) | CPT/HCPCS: 72197 ==

== ENCOUNTER 2024-12-13 09:29 | Outpatient (REF) | payer MEDICARE, BC, SELFPAY ==
--- NOTE | ~2024-12-13 | MR_ITS ---
EXAMINATION: MR PROSTATE WITHOUT THEN WITH IV CONTRAST HISTORY: C61 - Malignant neoplasm of prostate TECHNIQUE: 1.5T body coil survey of the pelvis was performed. Phase array coil imaging of the prostate was performed in multiplanar high resolution axial, coronal, sagittal fast spin echo T2 and axial T1 weighted imaging sequences. Axial diffusion imaging at intermediate and high field performed with ADC mapping. Next, 9 mL Gadavist was given by intravenous infusion, and dynamic axial imaging performed. COMPARISON: There are no prior studies for comparison. CLINICAL DATA: Most recent PSA: 5.9 ng/mL on 12/05/2024 PSA Density: 0.25 ng/mL squared Prostate Biopsy: Positive biopsy on 05/01/2023 with a [place] score 3+3 = 6 FINDINGS: Prostate size: 3.3 x 5.1 x 2.7 cm. Calculated prostate volume is 23.6 mL. Hemorrhage: None. Transitional Zone: There is moderate heterogeneous nodular hypertrophy of the transitional zone. Peripheral Zone: There are linear T2 hypointense foci within the peripheral zone which can be seen in the setting of prostatitis of scarring. There is 11 mm area of interest in the right posterolateral/lateral peripheral zone at the base extending to the mid gland (series 7, images 16-18) with imaging characteristics as follows: Lesion #1: DWI PI-RADS v2.1 score: 4 T2 PI-RADS v2.1 score: 4 DCE PI-RADS v2.1 score: + Overall PI-RADS v2.1 score: 4 Capsular contact: yes Extracapsular extension: none Seminal vesicle invasion: none Neurovascular bundle involvement: none Seminal Vesicles/Ejaculatory Ducts: Symmetric and normal in signal and caliber. Pelvic Lymph Nodes: No obturator or internal iliac lymph nodes meeting size criteria for adenopathy. Marrow Signal: Normal marrow signal and enhancement without focal lesion identified. MR/MR Prostate wo/w con IMPRESSION: Focus of abnormal signal intensity in the right posterolateral/lateral peripheral zone at the base extending to the midline as described, highly suspicious for clinically significant prostate carcinoma. PI-RADS 4: High (clinically significant cancer is likely to be present) PI-RADS Assessment Categories PI-RADS 1: Very low (clinically significant cancer is highly unlikely to be present) PI-RADS 2: Low (clinically significant cancer is unlikely to be present) PI-RADS 3: Intermediate (the presence of clinically significant cancer is equivocal) PI-RADS 4: High (clinically significant cancer is likely to be present) PI-RADS 5: Very high (clinically significant cancer is highly likely to be present) [employer]. MR Prostate Imaging Reporting and Data System version 2.1. [email or web address] Electronically signed by: Raulito Arcos MD 12/13/2024 10:58 AM [place]
[2024-12-13] MEDS: gadobutroL 10 ML VIAL IVPUSH (10:40)
== END 2024-12-13 09:30 | disposition home or self-care (01) ==
LOC: HO.MRI 09:29
PROVIDERS: PCP Internal Medicine; Visit Provider Urology
DX: C61 Malignant neoplasm of prostate (principal)
CPT/HCPCS: 72197; A9585

== ENCOUNTER 2024-12-20 15:47 | Outpatient (AMB) | payer MEDICARE, BC, SELFPAY ==
--- NOTE | 2024-12-20 15:50 | MHC.OFFVIS ---
Intake Visit Reasons: 4m/MRI/PSA(MRI 12/13)psa elevated Intake Note: Patient is present for 4M/MRI/PSA Urology Medication:FINASTERIDE Antibiotic Allergy:NONE Blood Thinner:NONE Optical Effects Layout Person Required: No Allergies No Known Allergies Allergy (Verified 12/20/24 15:50) HPI Comments Details: Grayson Esteves is a very pleasant male. He is a patient of Dr. Paulson. He is seen for further evaluation of the following urologic issues. - Prostate Cancer PSA rise off finasteride MRI stable Prolaris continue with surveillance 12/07 MRI - 25 g, 11 mm focus of signal intensity right posterolateral, lateral peripheral zone 10/06 Prolaris cell cycle score 3.3, active surveillance Prostate Cancer - Low volume Low grade - Nov 2021, repeat biopsy 05/05 PSA 12/04 3.6, 05/04 4.4, 08/04 4.0, 12/05 4.0, 12/06 8.6, 01/06 3.8, 04/05 4.7, 08/06 5.7, 01/07 5.21 April 2023 - US/MRI fusion biopsy Jermyn score:? 7 (3+4) (b 2.0) 6 (3+3) (E 2.0, d 3.0, C 1.5) Tumor quantitation: % of tissue involved: 5% PPF: SVI: PNI: NAD Prostate cancer diagnosed by Dr. Martel Nov 2021 PSA at dx - 3.6 - 45 g on ultrasound Pathologic stage T1c [facility] [employer] - 12/04 active surveillance score 3.6, DSM 1.9% November 2021 Histologic grade: Aristides score: 3+3=6 Grade group: 1 Tumor quantitation:? Number cores positive: 4 - LBM 5%, RBL 40%, RBM 10%, RML 5% - 60%/1200% Total number of cores: 12? % of tissue involved: 5% of all tissue examined Periprostatic fat inv.: Not identified Seminal vesicle inv.:Not identified Perineural inv.:Not identified LVI:Not identified Prostate MRI - 01/04 40cc prostate - 1 cm lesion right base PiRADS 4, no evidence contention [facility] Medical History Elevated cholesterol Prostate cancer Incomplete emptying of bladder Weak urinary stream Benign prostatic hyperplasia without lower urinary tract symptoms Elevated PSA Surgical History History of esophagogastroduodenoscopy (EGD) Hx of prostate biopsy History of surgical removal of pilonidal cyst Hx of hernia repair Social History Patient Tobacco Use Status: Never used Tobacco Review of Systems Const Denies chills and Denies fever(s) Card Reports no additional complaints and Denies syncope Resp Denies cough GI Denies abdominal pain and Denies heartburn Reports as per HPI and Denies change in libido Neuro Denies syncope Psych Denies change in libido Endo Denies change in libido Physical Exam Const General: cooperative, healthy appearing, comfortable and no acute distress Orientation/consciousness: patient oriented x3 HEENT Face and sinus: Yes normal facial exam Mouth: moist mucous membranes Neck Neck: Yes normal visual inspection, Yes full ROM and Yes trachea midline Chest Chest palpation & inspection: normal inspection of the chest Resp Effort & Inspection: normal respiratory effort, able to speak in complete sentences and no respiratory distress GI Inspection: Yes normal to inspection Back/Spine/Pelvis Cervical Spine: normal cervical lordosis Thoracic/Lumbar Spine: thoracic and lumbar spine normal to inspection Skin General skin exam: no rashes or lesions noted Neuro General: patient oriented x3, gait normal, tone normal and moves all extremities Extrem General: Yes normal to inspection and Yes capillary refill normal Assessment & Plan Assessment & Plan (1) Prostate cancer: Comment: Nov 2020 - Gl 3+3 - Prolaris Active Surveillance Code(s): C61 - Malignant neoplasm of prostate Category: Medical Plan Four month follow-up PSA Orders: Orders Prostate Specific Antigen 4 Months C61 - Malignant neoplasm of prostate Patient Instructions: This note is constructed using voice recognition software. While every effort has been made to ensure accuracy microsoft dynamics ax consultant errors may have been included. Imaging studies, laboratory and physical exam results were discussed and reviewed in detail. No major barriers to patient understanding were identified. An opportunity to ask questions regarding the treatment plan was provided. All questions were answered. The patient expressed understanding and agreement with the above treatment plan. The patient is aware they should contact our office by phone for worsening of their current condition or the appearance of new urologic symptoms. Compliance is encouraged with any medications and followup testing that is ordered. It is a privilege to participate in the urologic care of your patient. If you have any questions or concerns regarding treatment for the above conditions, or other urologic issues, please do not hesitate to contact me. The office telephone contact is [phone]. Sincerely, Dr Ariel Martel MD, [facility] - Urology Compassionate Specialist Care for the Genitourinary System Coding Level of Care Code Est Pt Level 4 (49010) Diagnoses Prostate cancer C61
--- OUTSIDE RECORDS SUMMARY | 2024-12-20 15:50 | XMS_ITS | Data Portability ---
Author Organization [place] - [facility], Allergy Address [address] [place] [phone] Assessment Encounter Date Assessment Date Assessment LastModified by Organization Details LastModified Time 07/31/2024 07/31/2024 64-year-old male presents for yearly hearing screening. Otologic exam is unremarkable. Audiometric testing shows stable hearing loss bilaterally, slightly worse in the left than in the right. Will continue observation with repeat audiometric testing every 1 to 2 years or sooner for acute changes in hearing. All questions were answered. [email or web address] Not available 07/31/2024 11:54:11 Plan of Treatment Reminders Order Date Submit Date Provider Last Modified By Organization Details Last Modified Time Details Appointments None record ed. Lab None record ed. Referral None record ed. Procedures None record ed. Surgeries None record ed. Imaging None record ed. Medication Orders None record ed. Patient TargetsNo targets recorded. Patient InstructionsNo instructions recorded. Reason for Referral None Reported. Results Created Date Observation Date Name Description Value Unit Range Abnormal Flag Note LastModifiedBy Organization Detail LastModifiedTime 07/03/2006/02/2023 imagi ng/di agnos tic resul t No observ ation record ed. [email or web address] Not Available 05:14:06 07/03/20 24 06/23/2023 imagi ng/di agnos tic resul t No observ ation record ed. [email or web address] Not Available 05:14:09 07/03/20 24 06/29/2023 imagi ng/di agnos tic resul t No observ ation record ed. [email or web address] Not Available 05:14:11 07/03/20 24 09/08/2023 imagi ng/di agnos tic resul t No observ ation record ed. [email or web address] Not Available 05:14:17 07/03/20 24 09/08/2023 imagi ng/di agnos tic resul t No observ ation record ed. [email or web address] Not Available 05:14:18 07/03/20 24 01/01/2024 audio gram No observ ation record ed. [email or web address] Not Available 05:14:20 07/03/20 24 02/12/2024 audio gram No observ ation record ed. [email or web address] Not Available 05:14:21 07/03/20 24 02/27/2024 audio gram No observ ation record ed. [email or web address] Not Available 05:14:22 07/03/20 24 03/13/2024 audio gram No observ ation record ed. [email or web address] Not Available 05:14:23 07/03/20 24 06/02/2023 audio gram No observ ation record ed. [email or web address] Not Available 05:14:43 07/03/20 24 06/29/2023 audio gram No observ ation record ed. [email or web address] Not Available 05:15:00 07/03/2009/08/2023 audio gram No observ ation record ed. [email or web address] Not Available 05:15:10 08/01/20 audio gram No observ ation record ed. [email or web address] Not Available 2023 11:54:23 Result Notes None recorded. Problems Name Problem SNOMED Code Status Onset Date Resolution Date Notes Provider Name and Address Organization Details Recorded Time Subjectiv e tinnitus 10751309 Active 2022 Subjectiv e tinnitus; Note: Date Diagnosed : 06/29/2023 11:19 AM (388.31) Not Available [facility] 02:36:43 Asymmetri kapil sensorine ural hearing loss 881840980 Active 2022 Hearing loss: Sensorine ural hearing loss, asymmetri kapil; Note: Date Diagnosed : 06/29/2023 11:19 AM (389.16) Not Available [facility] 02:36:39 Sensorine ural hearing loss of bilateral ears 941270971 Active 2022 Sensorine ural hearing loss, bilateral ; Note: Date Diagnosed : 06/02/2023 10:18 AM (H90.3) Not Available [facility] 4 02:36:49 Tinnitus of left ear 59152719811 06 Active 2022 Tinnitus, left ear; Note: Date Diagnosed : 06/02/2023 11:04 AM (H93.12) Not Available [facility] 02:36:36 Problem Notes None recorded. Procedures Surgical History Date Name Laterality Status Provider Name and Address Organization Details Recorded Time Hearing Aid Fitting (V5011) completed GERARD DUQUE MA, [facility] [address] [place] [address], [phone], [facility] 09/25/2024 14:44:54 Air & Speech Audio with Tymps (68048, 06679 & 36053) completed GERARD DUQUE MA, CCC-A [address] [facility],[address], [phone], [facility] 07/31/2024 11:33:11 Imaging Results Imaging Date Name Status LastModified by Organiz [facility] Details LastModified Time 06/02/2023 imaging/diagno stic result completed Information not available 07/03/2024 05:14:06 06/23/2023 imaging/diagno stic result completed Information not available 07/03/2024 05:14:09 06/29/2023 imaging/diagno stic result completed Information not available 07/03/2024 05:14:11 09/08/2023 imaging/diagno stic result completed Information not available 07/03/2024 05:14:17 09/08/2023 imaging/diagno stic result completed Information not available 07/03/2024 05:14:18 01/01/2024 audiogram completed Information not available 07/03/2024 05:14:20 02/12/2024 audiogram completed Information not available 07/03/2024 05:14:21 02/27/2024 audiogram completed Information not available 07/03/2024 05:14:22 03/13/2024 audiogram completed Information not available 07/03/2024 05:14:23 06/02/2023 audiogram completed Information not available 07/03/2024 05:14:43 06/29/2023 audiogram completed Information not available 07/03/2024 05:15:00 09/08/2023 audiogram completed Information not available 07/03/2024 05:15:10 08/01/2024 audiogram completed BARCODE Information no t available 08/01/2024 11:54:23 Procedure Notes None recorded. Medical Equipment None Reported. Medications Name Sig Start Date Stop Date Status Note LastModified by Organization Details LastModified Time atorvasta tin 40 mg tablet TAKE 1 TABLET BY MOUTH EVERY DAY active Not Available Not Available No t Available prednison e 10 mg tablet by mouth 06/29 completed Medicati on ID: [id number] P rescribe d By Name: Jesu Good nd Name: predniso ne Send Method: E-Prescr ibed Sub s Allowed: subs OK Speci al Instruct ion: Take 4 tabs PO QD X 5 days, 3 tabs day 6, 2 tabs day 7 and 1 tab day 8 Medica tionGene ricName: predniso ne Not Available Not Available Not Available benzonata te 200 mg capsule TAKE 1 CAPSULE BY MOUTH 3 TIMES A DAY,X7 DAYS, NEEDED FOR COUGH active Not Available Not Available No t Available hydrocort isone 2.5 % topical cream with perineal applicato r APPLY IN A THIN FILM TO THE AFFECTED SKIN AND RUB IN GENTLY AND COMPLETE LY 3 TIMES DAILY active Not Available Not Available No t Available finasteri de 5 mg tablet TAKE 1 TABLET BY MOUTH EVERY DAY active Not Available Not Available No t Available Vitals None Recorded Social History None recorded. Functional Status None recorded. Mental Status None recorded. Family History Nothing Reported. Medical History No medical history recorded. Past Encounters Encounter ID Performer Location Encounter Start Date Encounter Closed Date Diagnosis/Indication Diagnosis SNOMED-CT Code Diagnosis ICD10 Code Diagnosis Note [id number] ANNE-MARIE MORENO MD [facility] [address] [phone] 07/31/2024 10:59:26 07/31/2024 12:11:06 Sensorineural hearing loss of bilateral ears 941434600 H90.3 [id number] GERARD DUQUE MA, CCC-A [facility] [address] [phone] 07/31/2024 11:32:29 07/31/2024 12:22:05 Sensorineural hearing loss of bilateral ears 442520058 H90.3 Audiologic al evaluation results: Right ear: {{Normal N ormal through 2 kHz Mild M oderate Mo derately-s evere Susana re Profoun d Normal hearing thru 2000Hz #}} {{hearing sloping to a mild slopi ng to a moderate s loping to moderately severe slo ping to severe slo ping to profound f lat high frequency low frequency mid frequency cookie bite bernardo curve drop ping to a mild-moder ate SNHL#}} {{with* se nsorineura l hearing loss with condu ctive hearing loss with mixed hearing loss with}} {{excellen t* good fa ir poor no measurable }} word recognitio n. Left ear: {{Normal N ormal through 2 kHz Mild M oderate Mo derately-s evere Susana re Profoun d Normal hearing thru 500Hz#}} {{hearing sloping to a mild slopi ng to a moderate s loping to moderately severe slo ping to severe slo ping to profound f lat high frequency low frequency mid frequency cookie bite bernardo curve slop ing to mild to moderately severe SNHL #}} {{with* se nsorineura l hearing loss with condu ctive hearing loss with mixed hearing loss with}} {{excellen t good* fa ir poor no measurable }} word recognitio n. Stable hearing levels AU Tympanomet ry: Right Ear:{{Type A* Type As Type Ad Type C Type C, shallow & rounded Ty pe B Type B with large volume Cou ld not maintain a hermetic seal}} Left Ear:{{Type A* Type As Type Ad Type C Type C, shallow & rounded Ty pe B Type B with large volume Cou ld not maintain a hermetic seal}} [id number] GERARD DUQUE MA, CCC-A [facility] [place] [address] [facility] [address] [facility] [place] [address] 09/25/2024 13:54:54 09/27/2024 07:27:54 Sensorineural hearing loss of bilateral ears [id number] H90.3 Audiologic al evaluation results: Right ear: {{Normal N ormal through 2 kHz Mild M oderate Mo derately-s evere Susana re Profoun d Normal hearing thru 2000Hz #}} {{hearing sloping to a mild slopi ng to a moderate s loping to moderately severe slo ping to severe slo ping to profound f lat high frequency low frequency mid frequency cookie bite bernardo curve drop ping to a mild-moder ate SNHL#}} {{with* se nsorineura l hearing loss with condu ctive hearing loss with mixed hearing loss with}} {{excellen t* good fa ir poor no measurable }} word recognitio n. Left ear: {{Normal N ormal through 2 kHz Mild M oderate Mo derately-s evere Susana re Profoun d Normal hearing thru 500Hz#}} {{hearing sloping to a mild slopi ng to a moderate s loping to moderately severe slo ping to severe slo ping to profound f lat high frequency low frequency mid frequency cookie bite bernardo curve slop ing to mild to moderately severe SNHL #}} {{with* se nsorineura l hearing loss with condu ctive hearing loss with mixed hearing loss with}} {{excellen t good* fa ir poor no measurable }} word recognitio n. Stable hearing levels AU Tympanomet ry: Right Ear:{{Type A* Type As Type Ad Type C Type C, shallow & rounded Ty pe B Type B with large volume Cou ld not maintain a hermetic seal}} Left Ear:{{Type A* Type As Type Ad Type C Type C, shallow & rounded Ty pe B Type B with large volume Cou ld not maintain a hermetic seal}} Health Concerns Section Related Observation LastModified by Organization Detai ls LastModified Time None Recorded Concern Status LastModified by Organization Details LastModified Time None Recorded Advance Directives Directive None Recorded Payers Encounter Date Sequence Insurance Name Policy Number Policy Guy Covered Member ID Guy Member ID Guarantor Name 07/31/[address] [facility] [place] [employer] [place] PROGRAM (PPO) [id number] Grayson A Danielito [id number] Grayson A Danielito 07/31/2024 1 [place]: [employer]ATIONAL [employer]MENT [employer] Grayson Esteves [id number] Grayson Esteves 07/31/[address] [employer] [facility] [employer] [place] (PPO) 104 Grayson Esteves [id number] Grayson Esteves 07/31/2024 1 [place]: [employer]ATIONAL [employer]MENT [employer] Grayson Esteves [id number] Grayson Esteves 09/25/2024 2 [place] [employer] [place] [employer]GRAM (PPO) 104 Grayson Sergei Danielito [id number] Grayson Esteves 09/25/2024 1 [place]: [employer]ATIONAL [employer]MENT [employer] Grayson Esteves [id number] Grayson Esteves Notes Date Note Type Note Provider Name and Address Organization Details Recorded Time 07/31/2024 text/html 64-year-old male presents for yearly hearing screening. History of left-sided sudden sensorineural hearing loss with excellent response to oral steroid and intratympanic dexamethasone. MRI was negative for retrocochlear pathology. He has left-sided amplification only and has been doing very well with stable hearing. ANNE-MARIE MORENO MD [address] [place] [address], [phone], [facility] 07/31/2024 16:57:50
== END 2024-12-20 16:39 | disposition home or self-care (01) ==
PROVIDERS: PCP Pediatrics; Visit Provider Urology
DX: C61 Malignant neoplasm of prostate (principal)
CPT/HCPCS: 99214

== ENCOUNTER → 2024-12-20 15:47 | Outpatient (BNVA) | payer MEDICARE, BC, SELFPAY | PROVIDERS: PCP Pediatrics; Visit Provider Urology | DX: C61 Malignant neoplasm of prostate (principal) | CPT/HCPCS: 99212 ==

== ENCOUNTER 2025-04-16 13:45 | Outpatient (AMB) | payer MEDICARE, BC, SELFPAY ==
--- NOTE | 2025-04-16 13:48 | MHC.OFFVIS ---
Intake Visit Reasons: 4m/PSA Intake Note: Patient is present for 4M/PSA Urology Medication:FINASTERIDE Antibiotic Allergy:NONE Blood Thinner:NONE Car Rental Sales Assistant Required: No Allergies No Known Allergies Allergy (Verified 04/16/25 13:54) HPI Comments Details: Grayson Esteves is a very pleasant male. He is a patient of Dr. Paulson. He is seen for further evaluation of the following urologic issues. - Prostate Cancer PSA 6.5 continued rise Would recommend intervention Low volume, low-grade with rising PSA Recommendation either brachytherapy versus targeted cryotherapy Referral for discussion of brachytherapy 12/07 MRI - 25 g, 11 mm focus of signal intensity right posterolateral, lateral peripheral zone 10/06 Prolaris cell cycle score 3.3, active surveillance Prostate Cancer - Low volume Low grade - Nov 2021, repeat biopsy 05/05 PSA 12/04 3.6, 05/04 4.4, 08/04 4.0, 12/05 4.0, 12/06 8.6, 01/06 3.8, 04/05 4.7, 08/06 5.7, 01/07 5.21 April 2023 - US/MRI fusion biopsy Chelan score:? 7 (3+4) (b 2.0) 6 (3+3) (E 2.0, d 3.0, C 1.5) Tumor quantitation: % of tissue involved: 5% PPF: SVI: PNI: NAD Prostate cancer diagnosed by Dr. Martel Nov 2021 PSA at dx - 3.6 - 45 g on ultrasound Pathologic stage T1c [facility] - 12/04 active surveillance score 3.6, DSM 1.9% November 2021 Histologic grade: Aristides score: 3+3=6 Grade group: 1 Tumor quantitation:? Number cores positive: 4 - LBM 5%, RBL 40%, RBM 10%, RML 5% - 60%/1200% Total number of cores: 12? % of tissue involved: 5% of all tissue examined Periprostatic fat inv.: Not identified Seminal vesicle inv.:Not identified Perineural inv.:Not identified LVI:Not identified Prostate MRI - 01/04 40cc prostate - 1 cm lesion right base PiRADS 4, no evidence contention [facility] Medical History Elevated cholesterol Prostate cancer Incomplete emptying of bladder Weak urinary stream Benign prostatic hyperplasia without lower urinary tract symptoms Elevated PSA Surgical History History of esophagogastroduodenoscopy (EGD) Hx of prostate biopsy History of surgical removal of pilonidal cyst Hx of hernia repair Social History Patient Tobacco Use Status: Never used Tobacco Review of Systems Const Denies chills and Denies fever(s) Card Reports no additional complaints and Denies syncope Resp Denies cough GI Denies abdominal pain and Denies heartburn Reports as per HPI and Denies change in libido Neuro Denies syncope Psych Denies change in libido Endo Denies change in libido Physical Exam Const General: cooperative, healthy appearing, comfortable and no acute distress Orientation/consciousness: patient oriented x3 HEENT Face and sinus: Yes normal facial exam Mouth: moist mucous membranes Neck Neck: Yes normal visual inspection, Yes full ROM and Yes trachea midline Chest Chest palpation & inspection: normal inspection of the chest Resp Effort & Inspection: normal respiratory effort, able to speak in complete sentences and no respiratory distress GI Inspection: Yes normal to inspection Back/Spine/Pelvis Cervical Spine: normal cervical lordosis Thoracic/Lumbar Spine: thoracic and lumbar spine normal to inspection Skin General skin exam: no rashes or lesions noted Neuro General: patient oriented x3, gait normal, tone normal and moves all extremities Extrem General: Yes normal to inspection and Yes capillary refill normal Assessment & Plan Assessment & Plan (1) Prostate cancer: Comment: Nov 2020 - Gl 3+3 - Prolaris Active Surveillance Code(s): C61 - Malignant neoplasm of prostate Category: Medical Plan Plan 1. Prostate Cancer Discussed intervention options: brachytherapy and targeted cryotherapy. Brachytherapy involves prostate seed implantation, a short catheter period, and a 95-97% non-recurrence rate over five years. Cryotherapy requires an MRI-guided approach with a 5-day catheter but preserves sexual function. Explained need for follow-up imaging and biopsy post-treatment. Informed about potential stricture risk. Patient will evaluate options with specialist consultations. Aimed to address PSA increase and preserve quality of life. Discussion Notes During the visit, I reviewed the patient's elevated PSA levels and potential interventions for prostate cancer, which include brachytherapy and targeted cryotherapy. Brachytherapy presents a long-standing treatment option with established success rates around 95-97% for five-year non-recurrence. Alternatively, targeted cryotherapy offers a novel approach with about a 90% success rate over five years, though slightly higher risks of recurrence may necessitate repeat treatments. We explored benefits such as better sexual function preservation with cryotherapy, along with risks linked to each choice, including potential urethral stricture from brachytherapy. I explained that post-treatment monitoring includes MRI and possible repeat biopsies, necessary due to the multifocal nature of prostate cancer. I urged considering specialist consultations to comprehensively evaluate both options. The conversation covered the importance of managing the patient's rising PSA and progression potential while respecting his preferences on treatment duration and procedures. Patient Instructions - Discuss treatment options with specialists for brachytherapy and cryotherapy. - Plan for post-procedural follow-up checks, including MRI and potential biopsies. - Expect to have a catheter for 24-hours after brachytherapy or for 5 days after cryotherapy. - Be aware of possible symptoms or changes post-procedure and seek care if concerns arise. - Schedule and attend all follow-up appointments as planned. Orders: Referrals Radiation Oncology Referral C61 - Malignant neoplasm of prostate Patient Instructions: This note is constructed using voice recognition software. While every effort has been made to ensure accuracy vice president media relations errors may have been included. Imaging studies, laboratory and physical exam results were discussed and reviewed in detail. No major barriers to patient understanding were identified. An opportunity to ask questions regarding the treatment plan was provided. All questions were answered. The patient expressed understanding and agreement with the above treatment plan. The patient is aware they should contact our office by phone for worsening of their current condition or the appearance of new urologic symptoms. Compliance is encouraged with any medications and followup testing that is ordered. It is a privilege to participate in the urologic care of your patient. If you have any questions or concerns regarding treatment for the above conditions, or other urologic issues, please do not hesitate to contact me. The office telephone contact is [phone]. Sincerely, Dr Ariel Martel MD, [facility] - Urology Compassionate Specialist Care for the Genitourinary System Coding Level of Care Code Est Pt Level 4 (71950) Diagnoses Prostate cancer C61
--- OUTSIDE RECORDS SUMMARY | 2025-04-16 13:56 | XMS_ITS | Data Portability ---
Author Organization [place] - [facility], Allergy Address [address] [place] [id number] Assessment Encounter Date Assessment Date Assessment LastModified [...] changes in hearing. All questions were answered. [email or web address] Not available 07/31/2024 11:54:11 Plan of Treatment [...] Organization Details Recorded Time Subjectiv e tinnitus 32605298 Active 2022 Subjectiv e tinnitus; Note: Date Diagnosed : 06/29/2023 11:19 AM (388.31) Not Available [facility] 02:36:43 Asymmetri kapil sensorine ural hearing loss 494043616 Active 2022 Hearing loss: Sensorine ural hearing loss, asymmetri kapil; Note: Date Diagnosed : 06/29/2023 11:19 AM (389.16) Not Available [facility] 4 02:36:39 Sensorine ural hearing loss of bilateral ears 169721901 Active 2022 Sensorine ural hearing loss, bilateral ; Note: Date Diagnosed : 06/02/2023 10:18 AM (H90.3) Not Available [facility] 4 02:36:49 Tinnitus of left ear 47789293800 06 Active 2022 Tinnitus, left ear; Note: Date Diagnosed : 06/02/2023 11:04 AM (H93.12) Not Available [facility] 4 02:36:36 Problem Notes None recorded. Procedures Surgical History Date Name Laterality Status Provider Name and Address Organization Details Recorded Time 4 Hearing Aid Fitting (V5011) completed GERARD DUQUE MA, [facility] [address] [place] [address], [phone], [facility] 09/25/2024 14:44:54 4 Air & Speech Audio with Tymps - 84130, 46764 & 99983 completed GERARD DUQUE MA, [facility] [address] [place] [address], [phone], [facility] 07/31/2024 11:33:11 Imaging Results None recorded. Procedure Notes None recorded. Medical Equipment None Reported. Medications Name Sig Start Date Stop Date Status Note LastModified by Organization Details LastModified Time atorvasta tin 40 mg tablet TAKE 1 TABLET BY MOUTH EVERY DAY active Not Available Not Available No t Available prednison e 10 mg tablet by mouth 06/29 completed Medicati on ID: [id number] P shonnariromelia d By Name: Jesu Good nd Name: [...] SNOMED-CT Code Diagnosis ICD10 Code Diagnosis Note [id number] CHARIS WASHINGTON PA-C [facility] [address] [address] 07/31/2024 10:59:26 07/31/2024 12:11:06 Sensorineural hearing loss of bilateral ears 508716591 H90.3 [id number] GERARD DUQUE MA, CCC-A [facility] [address] [address] 07/31/2024 11:32:29 07/31/2024 12:22:05 Sensorineural hearing loss of bilateral ears 654062243 H90.3 Audiologic al evaluation results: Right ear: Normal Nor mal through 2 kHz Mild M oderate Mo derately-s evere Susana re Profoun d Normal hearing thru 2000Hz hearing sl oping to a mild slopi ng to a moderate s loping to moderately severe slo ping to severe slo ping to profound f lat high frequency low frequency mid frequency cookie bite bernardo curve drop ping to a mild-moder ate SNHL with excellent word recognitio n. Left ear: Normal Nor mal through 2 kHz Mild M oderate Mo derately-s evere Susana re Profoun d Normal hearing thru 500Hz hearing sl oping to a mild slopi ng to a moderate s loping to moderately severe slo ping to severe slo ping to profound f lat high frequency low frequency mid frequency cookie bite bernardo curve slop ing to mild to moderately severe SNHL with good word recognitio n. Stable hearing levels AU Tympanomet ry: Right Ear:Type A Left Ear:Type A [id number] GERARD DUQUE MA, CCC-A [facility] [address] [facility] [place]FER[place] [address] 09/25/2024 13:54:54 09/27/2024 07:27:54 Sensorineural hearing loss of bilateral ears 547683396 H90.3 Audiologic al evaluation results: Right ear: Normal Nor mal through 2 kHz Mild M oderate Mo derately-s evere Susana re Profoun d Normal hearing thru 2000Hz hearing sl oping to a mild slopi ng to a moderate s loping to moderately severe slo ping to severe slo ping to profound f lat high frequency low frequency mid frequency cookie bite bernardo curve drop ping to a mild-moder ate SNHL with excellent word recognitio n. Left ear: Normal Nor mal through 2 kHz Mild M oderate Mo derately-s evere Susana re Profoun d Normal hearing thru 500Hz hearing sl oping to a mild slopi ng to a moderate s loping to moderately severe slo ping to severe slo ping to profound f lat high frequency low frequency mid frequency cookie bite bernardo curve slop ing to mild to moderately severe SNHL with good word recognitio n. Stable hearing levels AU Tympanomet ry: Right Ear:Type A Left Ear:Type A Health Concerns Section Related Observation LastModified by Organization Detai ls LastModified Time None Recorded Concern Status LastModified by Organization Details LastModified Time None Recorded Advance Directives Directive None Recorded Payers Insurance Date Sequence Insurance Name Policy Number Policy Guy Covered Member ID Guy Member ID Guarantor Name 07/31/2024 1 [place] Grayson Esteves [id number] Grayson Esteves 07/31/2024 1 [place] 104 Grayson Esteves [id number] Grayson Esteves 09/22/2024 2 [place] 104 Grayson Esteves [id number] Grayson Esteves 07/31/2024 2 [place] 104 Grayson Esteves [id number] Grayson Mai Danielito 09/22/2024 1 [place] Grayson Esteves [id number] Grayson Mai Danielito Notes Date Note Type Note Provider Name and Address Organization Details Recorded Time 07/31/2024 text/html 64-year-old male presents for yearly hearing screening. History of left-sided sudden sensorineural hearing loss with excellent response to oral steroid and intratympanic dexamethasone. MRI was negative for retrocochlear pathology. He has left-sided amplification only and has been doing very well with stable hearing. ANNE-MARIE MORENO MD [address] [place] [address], [place], [address], [facility] - [facility] 07/31/2024 16:57:50
== END 2025-04-16 14:53 | disposition home or self-care (01) ==
LOC: HO.HUSH 13:45
PROVIDERS: PCP Pediatrics; Visit Provider Urology
DX: C61 Malignant neoplasm of prostate (principal)
CPT/HCPCS: 99214

== ENCOUNTER → 2025-04-16 13:45 | Outpatient (BNVA) | payer MEDICARE, BC, SELFPAY | PROVIDERS: PCP Pediatrics; Visit Provider Urology | DX: C61 Malignant neoplasm of prostate (principal) | CPT/HCPCS: 99212 ==

== ENCOUNTER 2025-05-13 09:51 | Outpatient (AMB) | payer MEDICARE, BC, SELFPAY ==
--- NOTE | 2025-05-13 09:52 | MHC.OFFVIS ---
Intake Visit Reasons: 4w f/u Intake Note: Patient is present for 4M/PSA Urology Medication:FINASTERIDE Antibiotic Allergy:NONE Blood Thinner:NONE Market Risk Analyst Required: No Accompanied by: Self / Same As Patient Allergies No Known Allergies Allergy (Verified 05/13/25 09:53) HPI Comments Details: Grayson Esteves is a very pleasant male. He is a patient of Dr. Paulson. He is seen for further evaluation of the following urologic issues. - Prostate Cancer Telemedicine Evaluation 15 min Consultation DoxLeversense Carlos Video Recommendation from radiation oncology repeat prostate biopsy This will be organized For remains grade group 2 or below recommendation still to maintain surveillance PSA 6.5 - consider intervention Low volume, low-grade with rising PSA Recommendation either brachytherapy versus targeted cryotherapy 12/07 MRI - 25 g, 11 mm focus of signal intensity right posterolateral, lateral peripheral zone 10/06 Prolaris cell cycle score 3.3, active surveillance Prostate Cancer - Low volume Low grade - Nov 2021, repeat biopsy 05/05 PSA 12/04 3.6, 05/04 4.4, 08/04 4.0, 12/05 4.0, 12/06 8.6, 01/06 3.8, 04/05 4.7, 08/06 5.7, 01/07 5.21 April 2023 - US/MRI fusion biopsy Aristides score:? 7 (3+4) (b 2.0) 6 (3+3) (E 2.0, d 3.0, C 1.5) Tumor quantitation: % of tissue involved: 5% PPF: SVI: PNI: NAD Prostate cancer diagnosed by Dr. Martel Nov 2021 PSA at dx - 3.6 - 45 g on ultrasound Pathologic stage T1c [employer] - 12/04 active surveillance score 3.6, DSM 1.9% November 2021 Histologic grade: Aristides score: 3+3=6 Grade group: 1 Tumor quantitation:? Number cores positive: 4 - LBM 5%, RBL 40%, RBM 10%, RML 5% - 60%/1200% Total number of cores: 12? % of tissue involved: 5% of all tissue examined Periprostatic fat inv.: Not identified Seminal vesicle inv.:Not identified Perineural inv.:Not identified LVI:Not identified Prostate MRI - 01/04 40cc prostate - 1 cm lesion right base PiRADS 4, no evidence contention [facility] Medical History Elevated cholesterol Prostate cancer Incomplete emptying of bladder Weak urinary stream Benign prostatic hyperplasia without lower urinary tract symptoms Elevated PSA Surgical History History of esophagogastroduodenoscopy (EGD) Hx of prostate biopsy History of surgical removal of pilonidal cyst Hx of hernia repair Social History Patient Tobacco Use Status: Never used Tobacco Review of Systems Const All systems reviewed & are unremarkable except as noted in HPI and below Reports no additional complaints Resp Reports no additional complaints GI Reports no additional complaints Reports as per HPI Musc Reports no additional complaints Physical Exam Telemedicine evaluation Appropriate responses Regular breathing rate and rhythm HEENT Head: Yes normal to inspection Ears: hearing grossly normal bilaterally Eyes General: appearance normal, both eyes and all related structures Neck Neck: Yes normal visual inspection Chest Chest palpation & inspection: normal inspection of the chest Resp Effort & Inspection: normal respiratory effort and able to speak in complete sentences Telehealth Telehealth Telehealth Platform: algrano Location of provider rendering services: practice address Location of patient: address on file Patient Identification confirmed using: Name, : Yes Telehealth method: voice only Patient verbally consented to treatment: Yes Patient verbally consented to billing insurance company: Yes Patient informed of any privacy concerns related to visit: Yes Assessment & Plan Assessment & Plan (1) Prostate cancer: Comment: Nov 2020 - Gl 3+3 - Prolaris Active Surveillance Code(s): C61 - Malignant neoplasm of prostate Category: Medical Plan Risks, benefits and alternatives to therapy were discussed. These include but are not limited to infection, bleeding, damage to local organs and tissues, need for further interventions. Anesthetic risks regarding cardiac arrhythmia, blood clots, and potential mortality were discussed. The patient understands the typical recovery time and the outpatient nature of the procedure. After consideration of these risks the patient gives full informed consent and they wish to move ahead with the procedure. Targeted ultrasound fusion biopsy Patient Instructions: This note is constructed using voice recognition software. While every effort has been made to ensure accuracy concessionist errors may have been included. Imaging studies, laboratory and physical exam results were discussed and reviewed in detail. No major barriers to patient understanding were identified. An opportunity to ask questions regarding the treatment plan was provided. All questions were answered. The patient expressed understanding and agreement with the above treatment plan. The patient is aware they should contact our office by phone for worsening of their current condition or the appearance of new urologic symptoms. Compliance is encouraged with any medications and followup testing that is ordered. It is a privilege to participate in the urologic care of your patient. If you have any questions or concerns regarding treatment for the above conditions, or other urologic issues, please do not hesitate to contact me. The office telephone contact is [phone]. Sincerely, Dr Ariel Martel MD, [facility] - Urology Compassionate Specialist Care for the Genitourinary System Coding Level of Care Code Tele Est Pt Level 4 (50577) Diagnoses Prostate cancer C61
--- OUTSIDE RECORDS SUMMARY | 2025-05-13 10:47 | XMS_ITS | Data Portability ---
Author Organization [place] - [facility], Allergy Address [address] [address] [place] [address] Assessment Encounter Date Assessment Date Assessment LastModified [...] changes in hearing. All questions were answered. [email or web address] Not available 07/31/2024 11:54:11 Plan of Treatment [...] ation record ed. [email or web address] Not Available 05:15:00 07/03/20 24 09/08/2023 audio gram No observ ation record ed. [email or web address] Not Available 05:15:10 08/01/20 audio gram No observ ation record ed. BARCODE Not Available 2023 11:54:23 Result Notes None recorded. Problems Name Problem SNOMED Code Status Onset Date Resolution Date Notes Provider Name and Address Organization Details Recorded Time Subjectiv e tinnitus 14076407 Active 2022 Subjectiv e tinnitus; Note: Date Diagnosed : 06/29/2023 11:19 AM (388.31) Not Available [facility] 02:36:43 Asymmetri kapil sensorine ural hearing loss 297027815 Active 2022 Hearing loss: Sensorine ural hearing loss, asymmetri kapil; Note: Date Diagnosed : 06/29/2023 11:19 AM (389.16) Not Available [facility] 4 02:36:39 Sensorine ural hearing loss of bilateral ears 905589866 Active 2022 Sensorine ural hearing loss, bilateral ; Note: Date Diagnosed : 06/02/2023 10:18 AM (H90.3) Not Available [facility] 4 02:36:49 Tinnitus of left ear 40417091105 06 Active 2022 Tinnitus, left ear; Note: Date Diagnosed : 06/02/2023 11:04 AM (H93.12) Not Available [facility] 02:36:36 Problem Notes None recorded. Procedures Surgical History Date Name Laterality Status Provider Name and Address Organization Details Recorded Time Hearing Aid Fitting (V5011) completed GERARD DUQUE MA, [facility] [address] [place] [address], [address] [place] [address], [facility] 09/25/2024 14:44:54 4 Air & Speech Audio with Tymps - 43587, 38327 & 61356 completed GERARD DUQUE MA, [facility] [address] [place] [address], [address] [place] [address], [facility] 07/31/2024 11:33:11 Imaging Results None recorded. Procedure Notes None recorded. Medical Equipment None Reported. Medications Name Sig Start Date Stop Date Status Note LastModified by Organization Details LastModified Time atorvasta tin 40 mg tablet TAKE 1 TABLET BY MOUTH EVERY DAY active Not Available Not Available No t Available prednison e 10 mg tablet by mouth 06/29 completed Medicati on ID: [id number] P rescribe d By Name: Jesu Good [...] SNOMED-CT Code Diagnosis ICD10 Code Diagnosis Note [id number] CHARIS WASHINGTON PA-C [facility] [address] [address] 07/31/2024 10:59:26 07/31/2024 12:11:06 Sensorineural hearing loss of bilateral ears 633566060 H90.3 [id number] GERARD DUQUE MA, CCC-A [facility] [address] [address] 07/31/2024 11:32:29 07/31/2024 12:22:05 Sensorineural hearing loss of bilateral ears 229982288 H90.3 Audiologic al evaluation results: Right ear: Normal hearing thru 2000Hz dropping to a mild-moder ate SNHL with excellent word recognitio n. Left ear: Normal hearing thru 500Hz sloping to mild to moderately severe SNHL with good word recognitio n. Stable hearing levels AU Tympanomet ry: Right Ear:Type A Left Ear:Type A [id number] GERARD DUQUE MA, CCC-A [facility] [place] [address] [place] [address] [address] 09/25/2024 13:54:54 09/27/2024 07:27:54 Sensorineural hearing loss of bilateral ears 182358696 H90.3 Audiologic al evaluation results: Right ear: Normal hearing thru 2000Hz dropping to a mild-moder ate SNHL with excellent word recognitio n. Left ear: Normal hearing thru 500Hz sloping to mild to moderately severe SNHL with [...] MEDICARE B-[place]: NATIONAL GOVERNMENT SERVICES Grayson Esteves [id number] Grayson Esteves 07/31/2024 1 [place] 104 Grayson Esteves [id number] Grayson Esteves 09/22/2024 2 [place] ([place]O) 104 Grayson Esteves [id number] Grayson Esteves 07/31/2024 2 [place] 104 Grayson Esteves [id number] Grayson Esteves 09/22/2024 1 [place]ERNMENT SERVICES Grayson Esteves [id number] Grayson Esteves Notes Date Note Type [...] well with stable hearing. ANNE-MARIE MORENO MD [address] [place] [address], [place], [address], [facility] - [facility] 07/31/2024 16:57:50
--- OUTSIDE RECORDS SUMMARY | 2025-05-13 10:47 | XMS_ITS | Clinical Summary ---
Author Organization [facility] Address [address] [place] [address] Care Team Providers Care Brain Picker Name Role Phone Malik Paulson MD Primary Care Provider [phone] Allergies No known active allergies Encounters Date Type Department Care Team Description 04/30/2025 10:50 AM EDT - 04/30/2025 11:59 PM EDT Hospital Encounter [facility] Radiation Oncology [address] [place] [id number] Jarrod Moya MD Prostate cancer (HCC) (Primary Dx) Discharge Disposition: Home or Self Care (01) from Last 3 Months Social History Tobacco Use Types Packs/Day Years Used Date Smoking Tobacco: Never Assessed Sex and Gender Information Value Date Recorded Sex Assigned at Male 04/21/2025 2:58 PM EDT Legal Sex Male 2:40 PM EDT Gender Identity Not on file Sexual Orientation Not on file Last Filed Vital Signs Vital Sign Reading Time Taken Comments Blood Pressure 143/81 04/30/2025 10:58 AM EDT Pulse 77 04/30/2025 10:58 AM EDT Temperature 36.8 C (98.3 F) 04/30/2025 10:58 AM EDT Respiratory Rate 16 04/30/2025 10:58 AM EDT Oxygen Saturation 95% 04/30/2025 10:58 AM EDT Inhaled Oxygen Concentration - - Weight 89.6 kg (197 lb 9.6 oz) 04/30/2025 10:58 AM EDT Height 180 cm (5' 10.87 ) 04/30/2025 10:58 AM ED T Body Mass Index 27.66 04/30/2025 10:58 AM EDT Plan of Treatment Upcoming Encounters Date Type Department Care Team (Late st Contact Info) Description 06/04/2025 3:00 PM EDT Appointment [facility] Radiation Oncology [address] [place] [address] - [place] [address] Jarrod Moya MD [address] [place] [address] Health Maintenance Due Date Last Done Comments Cologuard 1958 Colon Cancer Screening 1960 Colonoscopy 1958 FOBT / Fit Test 1958 Hepatitis C Screening 1960 Sigmoidoscopy 1960 COVID-19 Vaccine ( season) 2024 09/01/2023, 08/06/2022, 10/20/2021, Additional history exists Alcohol/Substance Use Screening 11/13/2024 Depression Screening and Follow-Up 11/13/2024 Health Care Proxy Review 11/13/2024 Social Drivers of Health Annual Screening 11/13/2024 RSV Vaccine (60+ years old and patients) (1 - 1-dose 75+ series) 2033 DTaP,Tdap,and Td Vaccines (3 - Td or Tdap) 12/13/2034 12/13/2024, 03/12/2015 Zoster Vaccines Completed 12/26/2020, 10/21/2020 Influenza Vaccine Completed 08/16/2024, , 08/06/2022, Additional history exists Pneumococcal Vaccine: 50+ Years Completed 11/15/2024 Hepatitis B Vaccines Aged Out No long er eligible based on patient's age to complete this topic Procedures * Due to [place] state law, this organization might not be sharing negative HIV tests. Procedure Name Priority Date/Time Associated Diagnosis Comments LAB - SCANNED 04/09/2025 from Last 3 Months Results * Due to [place] state law, this organization might not be sharing negative HIV tests. * LAB - SCANNED (04/09/2025) us Onbase Scan [facility] LAB HISTORICAL RESULTS Final Result from Last [address] [place]FER[place] [id number] [facility] FEDERAL MEDICARE Care Teams Brain Picker Relationship Specialty Start Date End Date Malik Paulson MD [address] [place] [address] [place] [address] PCP - General Internal Medicine 04/30/25
== END 2025-05-13 10:39 | disposition home or self-care (01) ==
LOC: HO.HUSH 09:51
PROVIDERS: PCP Internal Medicine; Visit Provider Urology
DX: C61 Malignant neoplasm of prostate (principal)
CPT/HCPCS: 99214

== ENCOUNTER 2025-06-23 13:05 | Day surgery (SDC) | payer MEDICARE, BC, SELFPAY ==
--- OUTSIDE RECORDS SUMMARY | 2025-05-26 15:09 | XMS_ITS | Clinical Summary ---
Author Organization [facility] Address [address] [place] [address] Care Team Providers Care Line Supply Name Role Phone Malik Paulson MD Primary Care Provider [phone] Allergies No known active allergies Encounters Date Type Department Care Team Description 04/30/2025 10:50 AM EDT - 04/30/2025 11:59 PM EDT Hospital Encounter [facility] Radiation Oncology [address] [place] [id number] Jarrod Moya MD Prostate cancer (HCC) (Primary [...] Care Team (Late st Contact Info) Description 07/09/2025 3:00 PM EDT Appointment [facility] Radiation Oncology [address] [place] [address] - [place] [address] Jarrod Moya MD [address] [place] [address] Health Maintenance Due Date Last Done Comments Cologuard 1958 Colon Cancer Screening 1958 Colonoscopy 1958 FOBT / Fit Test 1958 Hepatitis C Screening 1958 Sigmoidoscopy 1958 Medicare AWV 1959 COVID-19 Vaccine ( season) 2024 09/01/2023, 08/06/2022, 10/20/2021, Additional history exists Alcohol/Substance Use Screening 11/13/2024 Depression Screening and Follow-Up 11/13/2024 Health Care Proxy Review 11/13/2024 Social Drivers of Health Annual Screening 11/13/2024 Influenza Vaccine (#1) 2025 , 09/01/2023, 08/06/2022, Additional history exists RSV Vaccine (60+ years old and patients) (1 - 1-dose 75+ series) 2033 DTaP,Tdap,and Td Vaccines (3 - Td or Tdap) 12/13/2034 12/13/2024, 03/12/2015 Zoster Vaccines Completed 12/26/2020, 10/21/2020 Pneumococcal Vaccine: 50+ Years Completed 11/15/2024 Hepatitis B Vaccines Aged Out No long er eligible based on patient's age to complete this topic Procedures * Due to [place] state law, this organization might not be sharing negative HIV tests. Procedure Name Priority Date/Time Associated Diagnosis Comments LAB - SCANNED 04/09/2025 from Last 3 Months Results * Due to [place] law, this organization might not be sharing negative HIV tests. * LAB - SCANNED (04/09/2025) us Onbase Scan [facility] LAB HISTORICAL RESULTS Final Result from Last 3 Months Insurance [facility] FEDERAL MEDICARE Care Teams Line Supply Relationship Specialty Start Date End Date Malik Paulson MD [address] [place] [id number] PCP - General Internal Medicine 04/30/25
--- OUTSIDE RECORDS SUMMARY | 2025-05-26 15:10 | XMS_ITS | Data Portability ---
Author Organization [place] - [facility], Allergy Address [address] [address] [place] [address] Assessment Encounter Date Assessment Date Assessment LastModified [...] changes in hearing. All questions were answered. [email or web address] Not available 07/31/2024 11:54:11 Plan of Treatment [...] Organization Details Recorded Time Subjectiv e tinnitus 07240191 Active 2022 Subjectiv e tinnitus; Note: Date Diagnosed : 06/29/2023 11:19 AM (388.31) Not Available [facility] 02:36:43 Asymmetri kapil sensorine ural hearing loss 606471983 Active 2022 Hearing loss: Sensorine ural hearing loss, asymmetri kapil; Note: Date Diagnosed : 06/29/2023 11:19 AM (389.16) Not Available [facility] 4 02:36:39 Sensorine ural hearing loss of bilateral ears 393396970 Active 2022 Sensorine ural hearing loss, bilateral ; Note: Date Diagnosed : 06/02/2023 10:18 AM (H90.3) Not Available [facility] 4 02:36:49 Tinnitus of left ear 05200981327 06 Active 2022 Tinnitus, left ear; Note: Date Diagnosed : 06/02/2023 11:04 AM (H93.12) Not Available [facility] 02:36:36 Problem Notes None recorded. Procedures Surgical History Date Name Laterality Status Provider Name and Address Organization Details Recorded Time Hearing Aid Fitting (V5011) completed GERARD DUQUE [place], [facility] [address] [place] [address], [address] [place] [address], [facility] 09/25/2024 14:44:54 4 Air & Speech Audio with Tymps - 12799, 60246 & 17264 completed GERARD DUQUE MA, [facility] [address] [place] [address], [address] [place] [address], [facility] 07/31/2024 11:33:11 Imaging Results None recorded. Procedure Notes None recorded. Medical Equipment None Reported. Medications Name Sig Start Date Stop Date Status Note LastModified by Organization Details LastModified Time atorvasta tin 40 mg tablet TAKE 1 TABLET BY MOUTH EVERY DAY active Not Available Not Available No t Available prednison e 10 mg tablet by mouth 06/29 completed Medicati on ID: [id number] P rescribe d By Name: Jesu Good [...] SNOMED-CT Code Diagnosis ICD10 Code Diagnosis Note [id number] CHARIS WASHINGTON PA-C [facility] [address] [address] 07/31/2024 10:59:26 07/31/2024 12:11:06 Sensorineural hearing loss of bilateral ears 861233331 H90.3 [id number] GERARD DUQUE MA, CCC-A [facility] [address] [address] 07/31/2024 11:32:29 07/31/2024 12:22:05 Sensorineural hearing loss of bilateral ears 030287222 H90.3 Audiologic al evaluation results: Right ear: Normal hearing thru 2000Hz dropping to a mild-moder ate SNHL with excellent word recognitio n. Left ear: Normal hearing thru 500Hz sloping to mild to moderately severe SNHL with good word recognitio n. Stable hearing levels AU Tympanomet ry: Right Ear:Type A Left Ear:Type A [id number] GERARD DUQUE [place], CCC-A [facility] [address] [place] [address] [address] 09/25/2024 13:54:54 09/27/2024 07:27:54 Sensorineural hearing loss of bilateral ears [id number] H90.3 Audiologic al evaluation results: Right ear: [...] [place] Grayson Esteves [id number] Grayson Esteves 07/31/2024 1 [place] 104 Grayson Esteves [id number] Grayson Esteves 09/22/2024 2 [place] 104 Grayson Esteves [id number] Grayson Esteves 07/31/2024 2 [place] 104 Grayson Esteves [id number] Grayson Esteves 09/22/2024 1 [place] Grayson Esteves [id number] Grayson Esteves Notes Date Note Type [...] well with stable hearing. ANNE-MARIE MORENO MD [address] [place] [address], [place], [address], [facility] - [facility] 07/31/2024 16:57:50
[2025-06-19 14:10] VITALS: BMI 27.9
--- NOTE | 2025-06-20 12:40 | HO.ANESPROP2 ---
Documented by User: Mariana Donato NP 06/20/25 12:42 HPI - Anesthesia Eval Consult details Narrative: 65yo M for Targeted Prostate Needle Biopsy PMFSH Active Problems Active Problems: All Active Problems Prostate cancer (Acute) Benign prostatic hyperplasia without lower urinary tract symptoms (Acute) Elevated PSA (Acute) Past Medical History Medical History Arthritis Elevated cholesterol Prostate cancer Incomplete emptying of bladder Weak urinary stream Benign prostatic hyperplasia without lower urinary tract symptoms Elevated PSA Family History Family history of problems with anesthesia: No Surgical History Surgical History H/O colonoscopy History of esophagogastroduodenoscopy (EGD) Hx of prostate biopsy History of surgical removal of pilonidal cyst Hx of hernia repair History of Problems with Anesthesia: No Social History Social History Patient Tobacco Use Status: Never used Tobacco Use of substances other than those prescribed or required for medical reasons: No Are you DNR?: No Advance Directives: No Advance Directives Information Provided: Yes Meds Allergies Allergy/AdvReac Type Severity Reaction Status Date / Time No Known Allergies Allergy Verified 06/23/25 13:12 Home Medications ?Medication ?Instructions ?Recorded ?Confirmed ?Last Taken ?Type atorvastatin 40 mg tablet 40 mg PO DAILY 12/07/22 06/23/25 Unknown History Exam Height,Weight and Vital Signs: Height 5 ft 10.08 in Weight 88.3 kg Assessment and Plan Assessment Anesthesia Assessment: Chart Reviewed Final Anesthetic Review Family History of Problems with Anesthesia: No History of Problems with Anesthesia: No Documented by User: Maggi Feliciano MD 06/23/25 14:01 PMFSH Past Medical History Medical History Arthritis Elevated cholesterol Prostate cancer Incomplete emptying of bladder Weak urinary stream Benign prostatic hyperplasia without lower urinary tract symptoms Elevated PSA Surgical History Surgical History H/O colonoscopy History of esophagogastroduodenoscopy (EGD) Hx of prostate biopsy History of surgical removal of pilonidal cyst Hx of hernia repair Social History Social History Patient Tobacco Use Status: Never used Tobacco Use of substances other than those prescribed or required for medical reasons: No Are you DNR?: No Advance Directives: No Advance Directives Information Provided: Yes Meds Allergies Allergy/AdvReac Type Severity Reaction Status Date / Time No Known Allergies Allergy Verified 06/23/25 13:12 Home Medications ?Medication ?Instructions ?Recorded ?Confirmed ?Last Taken ?Type atorvastatin 40 mg tablet 40 mg PO DAILY 12/07/22 06/23/25 Unknown History Exam Airway Mallampati Class: II TM Dist: >3cm Neck ROM: Limited Heart: rrr Lungs: cta Assessment and Plan Assessment Anesthesia Assessment: Anesthesia Plan Discussed Final Anesthetic Review NPO: Yes ASA Class: III Final Preanesthetic Review: No Changes in Pt Med Stat, Meds/Allgs Chart Reviewed, Consent Obtained/Reviewed and Anes Risks/Benef Reviewed Patient Risk: Intermediate Procedure Risk: Low Anesthetic Plan Anesthetic Plan: GA Disposition: Standard PACU
[2025-06-23 13:13] VITALS: BMI 27.0
[2025-06-23 13:33] VITALS: BP 121/76; PULSE 73; RESP 15; TEMP 36.9; O2SAT 96
[2025-06-23] MEDS: Lactated Ringers 1,000 ML 100 ML IVCONT (13:39)
--- NOTE | 2025-06-23 14:33 | MHC.SHP ---
Pre-Procedural Eval Section A - 24 Hr Update-Section A only Date of Service: 06/23/25 The patient is an INPATIENT: No Changes since office visit: No Cold of Flu in the past 2 weeks, No New Medical Problems, No Changes in Medication and No Patient answered all questions The patient has been examined within 24 hours of the surgical procedure. The History & Physical has been completed within 30 days and I have reviewed it.: Yes Section B - Complete if H&P > 30 days Chief Complaint: Malignant neoplasm of prostate Details of Present Illness: Perineal ultrasound MRI targeted prostate biopsy Relevant Social History: None Present Medications: see Short Stay Collaborative assessment Medical History: Significant History History of Previous Operations: Relevant previous surgery/procedure and date(s) Allergies: Allergies Allergy/AdvReac Type Severity Reaction Status Date / Time No Known Allergies Allergy Verified 06/23/25 13:12 Review of Systems Sugical H&P ROS: Negative: Constitution, Cardiovascular, Respiratory, Neurological, Psychiatric, Hem-Onc, Allergic/Immunologic, Gastrointestinal, Genitourinary, Musculoskeletal, Integumentary, Endocrine and Eyes/Ears/Nose/Throat Exam Surgical H&P Exam: Normal: HEENT, Normal: Heart, Normal: Lungs, Normal: Extremities, Normal: Abdomen, Normal: Skin and Normal: Neurological Plan Diagnosis/Plan: Unchanged I have reviewed the history and physical and performed a pertinent physical examination on my patient. No changes have occurred unless specified. Time Spent With Patient Time: Total time managing care of this patient today ____ minutes.
[2025-06-23 15:20] VITALS: BP 117/72; PULSE 72; RESP 18; TEMP 36.6; O2SAT 94
[2025-06-23 15:25] VITALS: BP 111/64; PULSE 71; RESP 16; O2SAT 93
[2025-06-23 15:30] VITALS: BP 114/70; PULSE 65; RESP 16; O2SAT 93
[2025-06-23 15:35] VITALS: BP 114/75; PULSE 61; RESP 18; O2SAT 95
--- NOTE | 2025-06-23 15:48 | W.PM.OPN ---
Operative Note Operative Note Date of Service: 06/23/25 Narrative: Preoperative diagnosis: Prostate Cancer Postoperative diagnosis: Prostate Cancer Procedure: 1. transrectal ultrasound-guided pudendal nerve block 2. MRI-US fusion image registration performed 3. transperineal ultrasound-guided prostate biopsy 15 core including targets Surgeon: Dr. Ariel Martel Anesthetic: Sedation plus local Indications for procedure: Prostate Cancer - known cancer previously on active surveillance. Had change in PSA. Prior MRI shows 1 cm lesion right posterior lateral midgland. Procedure: After informed consent was verified, the patient was brought into the procedure area. Patient identity confirmed. Perioperative antibiotics confirmed. Safety pause time out performed. Anesthesia performed per protocol. Scrotum taped out of operative area. Iodine prep used. Perineal injection of local anesthetic. Digital guided prostate pudendal nerve block performed with 10 cc of 1% lidocaine. 5cc each side. Combination 10cc iodine with 50cc gel was mixed and placed in the rectum. Ultrasound probe was placed per rectum. Ultrasound probe stabilized on a prostate stepper with attached grid. [employer] software and hardware platform used for US image acquisition, US 3D model creation and MRI-US fusion image overlay. Ultrasound placement was made with external grid calibration for height and prostate diameter in both the transverse and longitudinal planes. Grid A-C covering right prostate and c-F covering left prostate. Numbers 1.0-2.5 covering posterior prostate and 2.5-4.0 covering anterior prostate. Once grid calibration was confirmed prostate ultrasound data acquisition was performed in the transverse fashion. The US images were registered to create model boundaries. A three dimensional ultrasound model was created using [employer] software. The model was reviewed against acquired US images. The planned needle targeting, based on prior acquisition of MRI imaging, was overlaid on the ultrasound images and targets confirmed through ultrasound review. Adjustments were then made between real time and projected model targeting locations. Based on pre-planning evaluation 15 targets had been identified. These included 4 targets in right posterolateral mid gland identified lesion/s. He tolerated the procedure well. Was transferred to stable condition in the PACU. Printed instructions regarding antibiotic use and common side effects such as low-grade temperature, potential infection and bleeding were given Pathology: 15 prostate biopsy CPT 40055 Modifier 22 for complexity of procedure execution (Perineal prostate biopsy) CPT code 36383: Transrectal ultrasound; this is a diagnostic test for evaluation of the prostate and surrounding structures, looking for abnormalities or suspicious areas worrisome for cancer CPT code 28271: Ultrasonic guidance for needle placement (eg, biopsy, aspiration, injection, localization device), imaging supervision and interpretation CPT 85354: 3D rendering with interpretation and reporting of computed tomography (CT), MRI, ultrasound, or other tomographic modality with image postprocessing under concurrent supervision; not requiring image postprocessing on an independent workstation
[2025-06-23 15:50] VITALS: BP 115/72; PULSE 62; RESP 16; TEMP 36.3; O2SAT 94
== END 2025-06-23 16:06 | disposition home or self-care (01) ==
PROVIDERS: PCP Internal Medicine; Visit Provider Urology
PROC: (CPT 55700; principal; 2025-06-23 14:40)
DX: C61 Malignant neoplasm of prostate (principal); R97.21 Rising PSA following treatment for malignant neoplasm of prostate; N40.1 Benign prostatic hyperplasia with lower urinary tract symptoms; R39.12 Poor urinary stream; R33.9 Retention of urine, unspecified; E78.00 Pure hypercholesterolemia, unspecified; Z79.899 Other long term (current) drug therapy; Z79.890 Hormone replacement therapy
CPT/HCPCS: 55706; 88305; J2003; J2704; J3010

== ENCOUNTER → 2025-06-23 13:05 | Outpatient (BNV) | payer MEDICARE, BC, SELFPAY | PROVIDERS: PCP Internal Medicine; Visit Provider Urology | DX: C61 Malignant neoplasm of prostate (principal) | CPT/HCPCS: 55706; 76872; 76942 ==

== ENCOUNTER 2025-07-04 13:19 | Outpatient (AMB) | payer MEDICARE, BC, SELFPAY ==
--- NOTE | 2025-07-04 13:19 | MHC.OFFVIS ---
Intake Visit Reasons: Prostate biopsy results Intake Note: Patient is present for: telehealth prostate bx results Urology Medication:FINASTERIDE Blood Thinner:NONE Garland Machine Operator Required: No Accompanied by: Self / Same As Patient Allergies No Known Allergies Allergy (Verified 07/04/25 13:20) HPI Comments Details: Grayson Esteves is a very pleasant male. He is a patient of Dr. Paulson. He is seen for further evaluation of the following urologic issues. - Prostate Cancer Telemedicine Evaluation 15 min Consultation [employer] [place] Video Repeat biopsy - Aristides grade is unchanged from 2022 Volume of disease has increased and 1 core had perineural invasion Histologic type: Acinar adenocarcinoma Histologic grade: Mansfield score: 3+3 (F,G,M); 3+4 (J) Recommendation move ahead with brachytherapy however will be at discretion of radiation oncology PSA 6.5 - consider intervention Low volume, low-grade with rising PSA Recommendation either brachytherapy versus targeted cryotherapy 12/07 MRI - 25 g, 11 mm focus of signal intensity right posterolateral, lateral peripheral zone 10/06 Prolaris cell cycle score 3.3, active surveillance Prostate Cancer - Low volume Low grade - Nov 2021, repeat biopsy 05/05 PSA 12/04 3.6, 05/04 4.4, 08/04 4.0, 12/05 4.0, 12/06 8.6, 01/06 3.8, 04/05 4.7, 08/06 5.7, 01/07 5.21 April 2023 - US/MRI fusion biopsy Mansfield score:? 7 (3+4) (b 2.0) 6 (3+3) (E 2.0, d 3.0, C 1.5) Tumor quantitation: % of tissue involved: 5% PPF: SVI: PNI: NAD Prostate cancer diagnosed by Dr. Martel Nov 2021 PSA at dx - 3.6 - 45 g on ultrasound Pathologic stage T1c [employer] - 12/04 active surveillance score 3.6, DSM 1.9% November 2021 Histologic grade: Mansfield score: 3+3=6 Grade group: 1 Tumor quantitation:? Number cores positive: 4 - LBM 5%, RBL 40%, RBM 10%, RML 5% - 60%/1200% Total number of cores: 12? % of tissue involved: 5% of all tissue examined Periprostatic fat inv.: Not identified Seminal vesicle inv.:Not identified Perineural inv.:Not identified LVI:Not identified Prostate MRI - 01/04 40cc prostate - 1 cm lesion right base PiRADS 4, no evidence contention PFSH Medical History Arthritis Elevated cholesterol Prostate cancer Incomplete emptying of bladder Weak urinary stream Benign prostatic hyperplasia without lower urinary tract symptoms Elevated PSA Surgical History H/O colonoscopy History of esophagogastroduodenoscopy (EGD) Hx of prostate biopsy History of surgical removal of pilonidal cyst Hx of hernia repair Social History Patient Tobacco Use Status: Never used Tobacco Review of Systems Const All systems reviewed & are unremarkable except as noted in HPI and below Reports no additional complaints Resp Reports no additional complaints GI Reports no additional complaints Reports as per HPI Musc Reports no additional complaints Physical Exam Telemedicine evaluation Appropriate responses Regular breathing rate and rhythm HEENT Head: Yes normal to inspection Ears: hearing grossly normal bilaterally Eyes General: appearance normal, both eyes and all related structures Neck Neck: Yes normal visual inspection Chest Chest palpation & inspection: normal inspection of the chest Resp Effort & Inspection: normal respiratory effort and able to speak in complete sentences Telehealth Telehealth Telehealth Platform: [facility] Location of provider rendering services: practice address Location of patient: address on file Patient Identification confirmed using: Name, : Yes Telehealth method: video Patient verbally consented to treatment: Yes Patient verbally consented to billing insurance company: Yes Patient informed of any privacy concerns related to visit: Yes Minutes spent on Phone/Video with Pt.: 15 Assessment & Plan Assessment & Plan (1) Prostate cancer: Comment: Nov 2020 - Gl 3+3 - Prolaris Active Surveillance Code(s): C61 - Malignant neoplasm of prostate Category: Medical Plan Recommendation move ahead with brachytherapy Patient Instructions: This note is constructed using voice recognition software. While every effort has been made to ensure accuracy drapery cutter machine errors may have been included. Imaging studies, laboratory and physical exam results were discussed and reviewed in detail. No major barriers to patient understanding were identified. An opportunity to ask questions regarding the treatment plan was provided. All questions were answered. The patient expressed understanding and agreement with the above treatment plan. The patient is aware they should contact our office by phone for worsening of their current condition or the appearance of new urologic symptoms. Compliance is encouraged with any medications and followup testing that is ordered. It is a privilege to participate in the urologic care of your patient. If you have any questions or concerns regarding treatment for the above conditions, or other urologic issues, please do not hesitate to contact me. The office telephone contact is [phone]. Sincerely, Dr Ariel Martel MD, [facility] - Urology Compassionate Specialist Care for the Genitourinary System Coding Level of Care Code Tele Est Pt Level 3 (54138) Complex EM visit Add On G2211 Diagnoses Prostate cancer C61
--- OUTSIDE RECORDS SUMMARY | 2025-07-04 13:21 | XMS_ITS | Clinical Summary ---
Author Organization [facility] Address [address] [place] [address] Care Team Providers Care Surgery Teacher Name Role Phone Malik Paulson MD Primary Care Provider [phone] Allergies No known active allergies Encounters Date Type Department Care Team Description 06/13/2025 8:00 AM EDT - 06/13/2025 11:59 PM EDT Hospital Encounter [facility] Radiation Oncology [address] [place] [id number] Arrived Discharge Disposition: Home or Self Care (01) 04/30/2025 10:50 AM EDT - 04/30/2025 11:59 PM EDT Hospital Encounter [facility] Radiation Oncology [address] [place] [id number] Jarrod Moya MD Prostate cancer (HCC) (Primary Dx) Discharge Disposition: Home or Self Care () from Last 3 Months Social History Tobacco [...] Info) Description 07/09/2025 3:00 PM EDT Appointment [facility] Radiation Oncology [address] [place] [address] - First floor [place], [place] [phone] Jarrod Moya MD [address] [place] [phone] Health Maintenance Due Date Last Done Comments [...] complete this topic Procedures * Due to [place] state law, this organization might not be sharing negative HIV tests. Procedure Name Priority Date/Time Associated Diagnosis Comments LAB - SCANNED 04/09/2025 from Last 3 Months Results * Due to [place] state law, this organization might not be sharing negative HIV tests. * LAB - SCANNED (04/09/2025) us Onbase Scan [facility] LAB HISTORICAL RESULTS Final Result from Last 3 Months Insurance [facility] [employer]ER[employer] [facility]IC[facility] Care Teams Surgery Teacher Relationship Specialty Start Date End Date Malik Paulson MD [address] [place] [id number] PCP - General Internal Medicine 04/30/25
== END 2025-07-04 13:40 | disposition home or self-care (01) ==
LOC: HO.HUSH 13:19
PROVIDERS: PCP Internal Medicine; Visit Provider Urology
DX: C61 Malignant neoplasm of prostate (principal)
CPT/HCPCS: 99213; G2211

== ENCOUNTER 2025-10-03 13:02 | Outpatient (AMB) | payer MEDICARE, BC, SELFPAY ==
--- NOTE | 2025-10-03 13:05 | MHC.OFFVIS ---
Intake Visit Reasons: 3m follow up/PSA(set) Intake Note: Patient Is Present for Follow Up Urology Med: Finasteride Antibiotic Allergy: None Blood Thinner: None PVR: 241ml Patient reports frequency, Gets up 4 times during the night. Patient reports that he feels that he does not fully empty bladder Inside Contractor Sales Required: No Accompanied by: Self / Same As Patient Allergies No Known Allergies Allergy (Verified 10/03/25 13:08) HPI Comments Details: Grayson Esteves is a very pleasant male. He is a patient of Dr. Paulson. He is seen for further evaluation of the following urologic issues. - Prostate Cancer Underwent brachytherapy 09/16/[address] Moya at [facility] With barrier gel Does have some weakness of stream Likely due to prostatic edema. At terazosin 5 mg in the evening. May need short course of steroids depending on impact Continues with some degree of constipation. Recommend MiraLax daily. These are effects should resolve over the next 2 weeks. 07/07 Repeat biopsy - Aristides grade is unchanged from 2022 Volume of disease has increased and 1 core had perineural invasion Histologic type: Acinar adenocarcinoma Histologic grade: Aristides score: 3+3 (F,G,M); 3+4 (J) 12/07 MRI - 25 g, 11 mm focus of signal intensity right posterolateral, lateral peripheral zone 10/06 Prolaris cell cycle score 3.3, active surveillance Prostate Cancer - Low volume Low grade - Nov 2021, repeat biopsy 05/05 PSA 12/04 3.6, 05/04 4.4, 08/04 4.0, 12/05 4.0, 12/06 8.6, 01/06 3.8, 04/05 4.7, 08/06 5.7, 01/07 5.21 April 2023 - US/MRI fusion biopsy Aristides score:? 7 (3+4) (b 2.0) 6 (3+3) (E 2.0, d 3.0, C 1.5) Tumor quantitation: % of tissue involved: 5% PPF: SVI: PNI: NAD Prostate cancer diagnosed by Dr. Maretl Nov 2021 PSA at dx - 3.6 - 45 g on ultrasound Pathologic stage T1c [employer] - 12/04 active surveillance score 3.6, DSM 1.9% November 2021 Histologic grade: Aristides score: 3+3=6 Grade group: 1 Tumor quantitation:? Number cores positive: 4 - LBM 5%, RBL 40%, RBM 10%, RML 5% - 60%/1200% Total number of cores: 12? % of tissue involved: 5% of all tissue examined Periprostatic fat inv.: Not identified Seminal vesicle inv.:Not identified Perineural inv.:Not identified LVI:Not identified Prostate MRI - 01/04 40cc prostate - 1 cm lesion right base PiRADS 4, no evidence contention [facility] Medical History (Updated 10/03/25 @ 14:58 by Ariel Martel MD) Arthritis Elevated cholesterol Prostate cancer Incomplete emptying of bladder Weak urinary stream Benign prostatic hyperplasia without lower urinary tract symptoms Elevated PSA Surgical History H/O colonoscopy History of esophagogastroduodenoscopy (EGD) Hx of prostate biopsy History of surgical removal of pilonidal cyst Hx of hernia repair Social History Patient Tobacco Use Status: Never used Tobacco Review of Systems Const Denies chills and Denies fever(s) Card Reports no additional complaints and Denies syncope Resp Denies cough GI Denies abdominal pain and Denies heartburn Reports as per HPI and Denies change in libido Neuro Denies syncope Psych Denies change in libido Endo Denies change in libido Physical Exam Const General: cooperative, healthy appearing, comfortable and no acute distress Orientation/consciousness: patient oriented x3 HEENT Face and sinus: Yes normal facial exam Mouth: moist mucous membranes Neck Neck: Yes normal visual inspection, Yes full ROM and Yes trachea midline Chest Chest palpation & inspection: normal inspection of the chest Resp Effort & Inspection: normal respiratory effort, able to speak in complete sentences and no respiratory distress GI Inspection: Yes normal to inspection Back/Spine/Pelvis Cervical Spine: normal cervical lordosis Thoracic/Lumbar Spine: thoracic and lumbar spine normal to inspection Skin General skin exam: no rashes or lesions noted Neuro General: patient oriented x3, gait normal, tone normal and moves all extremities Extrem General: Yes normal to inspection and Yes capillary refill normal Office Procedures Post Void Residual Post Residual Void Post Void Residual (PVR): 241 [id number]-[id number] Void Residual by ultrasound Assessment & Plan Assessment & Plan (1) Prostate cancer: Comment: Nov 2020 - Gl 3+3 - Prolaris Active Surveillance Code(s): C61 - Malignant neoplasm of prostate Category: Medical (2) Weak urinary stream: Code(s): R39.12 - Poor urinary stream Category: Medical Plan Three-month follow-up Terazosin for 30 days Orders: Orders Prostate Specific Antigen 3 Months C61 - Malignant neoplasm of prostate AMB Post Void Residual by ultrasound Today N40.0 - Benign prostatic hyperplasia without lower urinary tract symptoms Medications: New terazosin 5 mg PO BEDTIME 30 caps 1RF 30 days C61 - Malignant neoplasm of prostate Patient Instructions: This note is constructed using voice recognition software. While every effort has been made to ensure accuracy medical transcription radiology errors may have been included. Imaging studies, laboratory and physical exam results were discussed and reviewed in detail. No major barriers to patient understanding were identified. An opportunity to ask questions regarding the treatment plan was provided. All questions were answered. The patient expressed understanding and agreement with the above treatment plan. The patient is aware they should contact our office by phone for worsening of their current condition or the appearance of new urologic symptoms. Compliance is encouraged with any medications and followup testing that is ordered. It is a privilege to participate in the urologic care of your patient. If you have any questions or concerns regarding treatment for the above conditions, or other urologic issues, please do not hesitate to contact me. The office telephone contact is [phone]. Sincerely, Dr Ariel Martel MD, [facility] - Urology Compassionate Specialist Care for the Genitourinary System Coding Level of Care Code Est Pt Level 4 (44224) Diagnoses Prostate cancer C61 Weak urinary stream R39.12 CPT Codes Post Residual Void - PVR CPT Code: 14071-Qmxt Void Residual by ultrasound ([id number])
--- OUTSIDE RECORDS SUMMARY | 2025-10-03 13:24 | XMS_ITS | Clinical Summary ---
Author Organization [facility] Address [address] [place] [address] Care Team Providers Care Physicist Acoustics Name Role Phone Malik Paulson MD Primary Care Provider [phone] Allergies No known active allergies Medications finasteride (PROSCAR) 5 mg tablet Take 5 mg by mouth once a day. Active atorvastatin (LIPITOR) 40 mg tablet SMARTSI Tablet(s) By Mouth Daily Active tamsulosin (FLOMAX) 0.4 mg capsule Take 1 capsule (0.4 mg total) by mouth once a day for 10 days. 10 capsule 09/03/2025 Active Active Problems Problem Noted Date Diagnosed Date Benign prostatic hyperplasia 09/10/2025 Hyperlipidemia 09/10/2025 Iron deficiency 09/10/2025 Retinal tear 09/10/2025 Subjective tinnitus 06/29/2023 Overview (09/10/2025): Subjective tinnitus; Note: Date Diagnosed: 06/29/2023 11:19 AM (388.31) Sensorineural hearing loss (SNHL) of both ears 0 06/02/2023 Overview (09/10/2025): Sensorineural hearing loss, bilateral; Note: Date Diagnosed: 06/02/2023 10:18 AM (H90.3) Encounters Date Type Department Care Team Description 09/19/2025 Telephone [facility] Radiation Oncology [address] [place] [address] - [place] [address] Nallely Brito RN 09/18/2025 7:30 AM EST - 09/18/2025 11:59 PM EST Hospital Encounter [facility] Radiation Oncology [address] [place] [phone] Jarrod Moya MD Discharge Disposition: Home or Self Care () 09/18/2025 7:28 AM EST Anesthesia Event [facility] Operating Room [address] [place] [phone] Anson Mann MD Galluzzo, Kathleen, CRNA 09/18/2025 7:15 AM EST - 09/18/2025 9:55 AM EST Surgery [facility] Operating Room [address] [place] [phone] Jarrod Moya MD TRANSPERINEAL IMPLANTATION OF THE PROSTATE WITH RADIOACTIVE SOURCES (PERMANENT PROSTATE BRACHYTHERAPY) [08686 (CPT )] 09/18/2025 5:32 AM EST - 09/18/2025 7:12 PM EST Hospital Encounter [facility] Operating Room [address] [place] [phone] Jarrod Moya MD Harris, John E., MD Discharge Disposition: Home or Self Care () 09/18/2025 Education [facility] Radiation Oncology [address] [place] [address] Jarrod Moya MD 09/15/2025 12:55 PM EST - 09/15/2025 11:59 PM EST Hospital Encounter [facility] Radiation Oncology [address] [place] [address] Arrived Discharge Disposition: Home or Self Care () 09/05/2025 2:14 PM EDT - 09/05/2025 11:59 PM EDT Hospital Encounter [facility] Radiation Oncology [address] [place] [phone] Jarrod Moya MD Prostate cancer (Primary Dx) Discharge Disposition: Home or Self Care () 09/03/2025 Orders Only [facility] Radiation Oncology [address] [place] [phone] Jarrod Moya MD 09/03/2025 Orders Only [facility] Radiation Oncology [address] [place] [phone] Jarrod Moya MD Prostate cancer (Primary Dx) 09/03/2025 Prep for Case [facility] Radiation Oncology [address] [place] [phone] Jarrod Moya MD Prostate cancer (Primary Dx) 07/30/2025 10:18 AM EDT - 07/30/2025 11:59 PM EDT Hospital Encounter [facility] Radiation Oncology [address] [place] [phone] Jarrod Moya MD Prostate cancer (HCC) (Primary Dx) Discharge Disposition: Home or Self Care (01) 07/15/2025 11:20 AM EDT - 07/15/2025 11:59 PM EDT Hospital Encounter [facility] Radiation Oncology [address] [place] [address] Discharge Disposition: Home or Self Care (01) 07/09/2025 1:40 PM EDT - 07/09/2025 11:59 PM EDT Hospital Encounter [facility] Radiation Oncology [address] [place] [phone] Jarrod Moya MD Prostate cancer (HCC) (Primary Dx) Discharge Disposition: Home or Self Care () from Last 3 Months Social History Tobacco Use Types Packs/Day Years Used Date Smoking Tobacco: Never Smokeless Tobacco: Never Tobacco Cessation:Counseling Given: Not Answered Alcohol Use Standard Drinks/Week Comments Yes 2 (1 standard drink = 0.6 oz pur e alcohol) Sex and Gender Information Value Date Recorded Sex Assigned at Male 04/21/2025 2:58 PM EDT Legal Sex Male 2:40 PM EDT Gender Identity Male 07/07/2025 2:31 PM EDT Sexual Orientation Straight 07/07/2025 2: 31 PM EDT Last Filed Vital Signs Vital Sign Reading Time Taken Comments Blood Pressure 107/67 09/18/2025 1:45 PM EST Pulse 88 09/18/2025 1:45 PM EST Temperature 36.3 C (97.3 F) 09/18/2025 12:23 PM EST Respiratory Rate 18 09/18/2025 1:45 PM EST Oxygen Saturation 97% 09/18/2025 1:45 PM EST Inhaled Oxygen Concentration - - Weight 84.6 kg (186 lb 9.6 oz) 09/18/2025 5:51 A M EST Height 180 cm (5' 10.87 ) 09/18/2025 5:51 AM EST Body Mass Index 26.12 09/18/2025 5:51 AM EST Plan of Treatment Upcoming Encounters Date Type Department Care Team (Late st Contact Info) Description 10/07/2025 10:00 AM EST Appointment [facility] Radiation Oncology [address] [place] [address] - [place] [address] Jarrod Moya MD [address] [place] [phone] Health Maintenance Due Date Last Done Comments Cologuard 1958 Colon Cancer Screening 1958 Colonoscopy 1958 FOBT / Fit Test 1958 Hepatitis C Screening 1958 Sigmoidoscopy 1958 Medicare AWV 1959 Alcohol/Substance Use Screening 11/13/2024 Depression Screening and Follow-Up 11/13/2024 Health Care Proxy Review 11/13/2024 Social Drivers of Health Annual Screening 11/13/2024 COVID-19 Vaccine ( season) 2025 09/01/2023, 08/06/2022, 10/20/2021, Additional history exists Fall Risk Screening 09/18/2026 09/18/2025 Diabetes Screening 09/11/2028 09/11/2025 RSV Vaccine (60+ years old and patients) (1 - 1-dose 75+ series) 2033 DTaP,Tdap,and Td Vaccines (3 - Td or Tdap) 12/13/2034 12/13/2024, 03/12/2015 Zoster Vaccines Completed 12/26/2020, 10/21/2020 Pneumococcal Vaccine: 50+ Years Completed 11/15/2024 Influenza Vaccine Completed 08/15/2025, , 09/01/2023, Additional history exists Hepatitis B Vaccines Aged Out No long er eligible based on patient's age to complete this topic Medical Devices Implanted Type Area Bundle Wrapper Device Identifier Shelf Expiration Date Model / Serial / Lot Pack Procedure Juan - [id number] Implanted:Qty: 1 on 09/18/2025 by Jarrod Moya MD at [facility] [employer]state [employer] 01/10/2028 [id number] Cesium -131 Brachytherapy Seds Implanted:Qty: 75 on 09/18/2025 by Jarrod Moya MD at [facility] N/A: Prostate Other [employer] / [id number] / [id number] Procedures * Due to [place] [employer] law, this organization might not be sharing negative HIV tests. Procedure Name Priority Date/Time Associated Diagnosis Comments [place] PERCUT/NEEDLE INSERT,PROSTATE,RADI OISOT 09/18/2025 7:12 AM EST Prostate cancer Special Needs NGUYEN TOP, URN Routine 09/11/2025 10:55 AM EDT Prostate cancer UA/CULTURE REFLEX Routine 09/11/2025 10: 55 AM EDT Prostate cancer URINALYSIS W/REFLEX TO MICROSCOPIC & CULTURE Routine 09/11/2025 10:55 AM EDT Prostate cancer PROTIME-INR Routine 09/11/2025 10:55 AM EDT Prostate cancer BASIC METABOLIC PANEL Routine 09/11/2025 10:55 AM EDT Prostate cancer CBC AUTO DIFFERENTIAL Routine 09/11/2025 10:55 AM EDT Prostate cancer from Last 3 Months Results * Due to [place] [employer] law, this organization might not be sharing negative HIV tests. * Nguyen Top, Urine (09/11/2025 10:55 AM EDT) Extra Tube Hold for add-ons. 09/11/2025 3:05 PM EDT [facility] Comment:Auto resulted. Urine Urine specimen collection, clean catch / Unknown Non-Blood Collection / Unknown 09/11/2025 10:55 AM EDT 09/11/2025 11:07 AM EDT us Jarrod Moya MD LAB URINE ORDERABLES Fi nal Result [facility] [address] [place] [address], * Urinalysis W/Reflex to Microscopic & Culture (09/11/2025 10:55 AM EDT) Color, Urine Light Yellow Colorless, Light Yellow, Yellow, Dark Yellow 09/11/2025 11:17 AM EDT [facility] Clarity, Urine Clear Clear 09/11/2025 11:17 AM EDT [facility] Specific [place], Urine 1.018 <1.030 09/11/2025 11:17 AM EDT [facility] pH, Urine 7.0 4.6 - 8.0 09/11/2025 11:17 AM EDT [facility] Protein, Urine Negative Negative 09/11/2025 11:17 AM EDT [facility] Glucose, Urine Normal Normal 09/11/2025 11:17 AM EDT [facility] Ketones, Urine Negative Negative 09/11/2025 11:17 AM EDT [facility] Bilirubin, Urine Negative Negative 09/11/2025 11:17 AM EDT [facility] Blood, Urine Negative Negative 09/11/2025 11:17 AM EDT [facility] Nitrite, Urine Negative Negative 09/11/2025 11:17 AM EDT [facility] Urobilinogen, Urine Normal Normal 09/11/2025 11:17 AM EDT [facility] Leukocyte Esterase, Urine Negative Negative 09/11/2025 11:17 AM EDT [facility] Urine Urine specimen collection, clean catch / Unknown Non-Blood Collection / Unknown 09/11/2025 10:55 AM EDT 09/11/2025 11:07 AM EDT us Jarrod Moya MD LAB URINE ORDERABLES Fi nal Result [facility] [address] [place] [address], * (ABNORMAL) CBC Auto Differential (09/11/2025 10:55 AM EDT) WBC 5.3 3.8 - 10.8 10*3/uL 09/11/2025 11:16 AM EDT [facility] RBC 5.70 4.20 - 5.80 10*6/uL 09/11/2025 11:16 AM EDT [facility] Hemoglobin 17.6(H) 13.2 - 17.1 g/dL 09/11/2025 11:16 AM T [facility] Hematocrit 52.1(H) 38.5 - 50.0 % 09/11/2025 11:16 AM EDT [facility] MCV 91.4 80.0 - 100.0 fL 09/11/2025 11:16 AM EDT [facility] MCH 30.9 27.0 - 33.0 pg 09/11/2025 11:16 AM EDT [facility] MCHC 33.8 32.0 - 36.0 g/dL 09/11/2025 11:16 AM T [facility] RDW 13.4 11.0 - 15.0 % 09/11/2025 11:16 AM [facility] Platelets 183 140 - 400 10*3/uL 09/11/2025 [facility] MPV 9.0 7.5 - 12.5 fL 09/11/2025 11:16 AM [facility] Neutrophil % 72.2 % 09/11/2025 11:16 AM [facility] Immature Grans % 0.2 0.0 - 0.9 % 09/11/2025 11:16 AM [facility] Lymphocyte % 16.2 % 09/11/2025 11:16 AM [facility] Monocyte % 8.7 % 09/11/2025 11:16 AM [facility] Eosinophil % 1.9 % 09/11/2025 11:16 AM [facility] Basophil % 0.8 % 09/11/2025 11:16 AM [facility] Neutrophil # 3.84 1.50 - 7.80 10*3/uL 09/11/2025 11:16 AM [facility] Immature Grans # <0.03 <=0.03 10*3/uL 09/11/2025 11:16 AM [facility] Lymphocyte # 0.90 0.85 - 3.90 10*3/uL 09/11/2025 11:16 AM [facility] Monocyte # 0.50 0.20 - 0.95 10*3/uL 09/11/2025 11:[facility] Eosinophil # 0.10 0.02 - 0.50 10*3/uL 09/11/2025 11:16 AM [facility] Basophil # <0.03 0.00 - 0.20 10*3/uL 09/11/2025 11:16 AM EDT [facility] nRBC % 0.0 /100 WBCs 09/11/2025 11:16 AM EDT [facility] nRBC # <0.01 <0.01 10*3/uL 09/11/2025 11:16 AM EDT [facility] Blood Structure of peripheral vein / Unknown Venipuncture / Unknown 09/11/2025 10:55 AM EDT 09/11/2025 11:07 AM EDT Jarrod Moya MD LAB BLOOD ORDERABLES Fi nal Result [facility] [address] [place] [address], * Protime-INR (09/11/2025 10:55 AM EDT) PT 11.0 9.6 - 12.4 Seconds 09/11/2025 11:23 AM EDT [facility] INR 0.9 0.9 - 1.1 09/11/2025 11:23 AM EDT [facility] Comment:The optimal therapeu tic INR range for patients treated with Vitamin K antagonists (VKAS, e.g., Warfarin) is 2.0 to 3.5. Discuss the desired range with your doctor/care team. Blood Structure of peripheral vein / Unknown Venipuncture / Unknown 09/11/2025 10:55 AM EDT 09/11/2025 11:07 AM EDT Jarrod Moya MD LAB BLOOD ORDERABLES Fi nal Result [facility] [address] [place] [address], * (ABNORMAL) Basic Metabolic Panel (09/11/2025 10:55 AM EDT) NA 139 135 - 145 mmol/L 09/11/2025 11:35 [facility] K 4.5 3.5 - 5.3 mmol/L 09/11/2025 11:35 AM [facility] Cl 103 97 - 110 mmol/L 09/11/2025 11:35 AM [facility] CO2 25 22 - 32 mmol/L 09/11/2025 11:35 AM EDT [facility] BUN 11 7 - 23 mg/dL 09/11/2025 11:35 AM [facility] Creatinine 0.98 0.60 - 1.30 mg/dL 09/11/2025 11:35 AM [facility] Glucose 131(H) 65 - 99 mg/dL 09/11/2025 11:35 AM [facility] Calcium 9.5 8.6 - 10.5 mg/dL 09/11/2025 11:35 AM [facility] Anion Gap 11 5 - 15 09/11/2025 11:35 AM [facility] eGFR 85 >=60 mL/min/1. 73m2 09/11/2025 11:35 AM [facility] Comment:The estimated glomer ular filtration rate (eGFR) is calculated using a new formula developed by the NKF-ASN task force to eliminate race-based correction factors. The new formula uses serum/plasma creatinine, age, and gender to determine eGFR. A value below 60mls/min might indicate kidney disease and will be flagged. For additional information, see Chapman et al, Am J Kidney Dis. 2021;79(2):268- 288, A Unifying Approach for GFR estimation: Recommendations of the NKF-ASN Task Force on Reassessing the Inclusion of Race in Diagnosing Kidney Disease . Blood Structure of peripheral vein / Unknown Venipuncture / Unknown 09/11/2025 10:55 AM EDT 09/11/2025 11:07 AM EDT us Jarrod Moya MD LAB BLOOD ORDERABLES Fi nal Result [facility] [address] [place] [address], [place] from Last 3 Months Insurance [facility] FEDERAL MEDICARE Advance Directives * Full Code (Latest Code Status on File) Date Activated Date Inactivated Comments 09/18/2025 6:43 AM 09/18/2025 9:18 PM Care Teams Physicist Acoustics Relationship Specialty Start Date End Date Malik Paulson MD [address] [place] [id number] PCP - General Internal Medicine 04/30/25
--- OUTSIDE RECORDS SUMMARY | 2025-10-03 13:24 | XMS_ITS | Data Portability ---
Author Organization [place] - [facility], Allergy Address [address] [address] [place] [address] Assessment Encounter Date Assessment Date Assessment LastModified [...] changes in hearing. All questions were answered. [email or web address] Not available 07/31/2024 11:54:11 10/02/2025 10/02/2025 Follow up with referring provider. [email or web address] Not available 10/02/2025 15:26:37 Plan of Treatment Reminders Order Date Submit Date Provider Last Modified By Organization Details Last Modified Time Details Appointments Establish ed 15 2025 03:15P M CHARIS WASHINGTON PA-C Not available Not available Not available Lab None recorded. Referral None recorded. Procedures None recorded. Surgeries None recorded. Imaging None recorded. Medication Orders None recorded. Patient TargetsNo targets recorded. Patient InstructionsNo instructions recorded. Reason for Referral None Reported. Results Created Date Observation Date Name Description Value Unit Range Abnormal Flag Note LastModifiedBy Organization Detail LastModifiedTime 07/03/20 24 06/02/2023 imagi ng/di agnos tic resul t No [...] record ed. BARCODE Not Available 2023 11:54:23 10/02/20 audio gram No observ ation record ed. BARCODE Not Available 2024 16:43:48 Result Notes None recorded. Problems Name Problem SNOMED Code Status Onset Date Resolution Date Notes Provider Name and Address Organization Details Recorded Time Sensorine ural hearing loss of bilateral ears 355695519 Active 2022 Sensorine ural hearing loss, bilateral ; Note: Date Diagnosed : 06/02/2023 10:18 AM (H90.3) Not Available [facility] 4 02:36:49 Tinnitus of left ear 94012203499 06 Active 2022 Tinnitus, left ear; Note: Date Diagnosed : 06/02/2023 11:04 AM (H93.12) Not Available [facility] 4 02:36:36 Subjectiv e tinnitus 76128009 Active 2022 Subjectiv e tinnitus; Note: Date Diagnosed : 06/29/2023 11:19 AM (388.31) Not Available [facility] 4 02:36:43 Asymmetri kapil sensorine ural hearing loss 214168766 Active 2022 Hearing loss: Sensorine ural hearing loss, asymmetri kapil; Note: Date Diagnosed : 06/29/2023 11:19 AM (389.16) Not Available [facility] 4 02:36:39 Sensorine ural hearing loss of bilateral ears 723166466 Active 2024 Curtis MCKENZIE 100 [facility],[address] [place], [address] , [facility] - [facility] 5 15:27:10 Problem Notes None recorded. Procedures Surgical History Date Name Laterality Status Provider Name and Address Organization Details Recorded Time 5 Air & Speech Audio with Tymps - 99963, 38674 & 62030 completed Curtis MCKENZIE 100 [facility],[address] [address], [place], [address], [facility] - [facility] 10/02/2025 15:26:37 4 Hearing Aid Fitting (V5011) completed GERARD DUQUE MA, CCC-A 100 [facility],[address], [address], [place] - [facility] 09/25/2024 14:44:54 4 Air & Speech Audio with Tymps - 77269, 77348 & 26995 completed GERARD DUQUE MA, CCC-A [address] [place] [address], [address], [facility] - [facility] 07/31/2024 11:33:11 Imaging Results None recorded. Procedure Notes None recorded. Medical Equipment None Reported. Medications Name Sig Start Date Stop Date Status Note LastModified by Organization Details LastModified Time atorvasta tin 40 mg tablet TAKE 1 TABLET BY MOUTH EVERY DAY active Not Available Not Available No t Available prednison e 10 mg tablet by mouth 06/29 completed Medicati on ID: [id number] P rescribe d By Name: Jesu Good [...] Diagnosis SNOMED-CT Code Diagnosis ICD10 Code Diagnosis IMO Codes Diagnosis Note [id number] CHARIS WASHINGTON PA-C [facility] [address] [place] [address] 07/31/2024 10:59:26 07/31/2024 12:11:06 Sensorineural hearing loss of bilateral ears [id number] H90.3 26086 GERARD DUQUE MA, CCC-A [facility] [address] [address] [place] [address] 07/31/2024 11:32:29 07/31/2024 12:22:05 Sensorineural hearing loss of bilateral ears 338108424 H90.3 Audiologic al evaluation results: Right ear: Normal hearing thru 2000Hz dropping to a mild-moder ate SNHL with excellent word recognitio n. Left ear: Normal hearing thru 500Hz sloping to mild to moderately severe SNHL with good word recognitio n. Stable hearing levels AU Tympanomet ry: Right Ear:Type A Left Ear:Type A [id number] GERARD DUQUE MA, CCC-A [facility] [place] [address] [address] 09/25/2024 13:54:54 09/27/2024 07:27:54 Sensorineural hearing loss of bilateral ears 829573688 H90.3 Audiologic al evaluation results: Right ear: Normal hearing thru 2000Hz dropping to a mild-moder ate SNHL with excellent word recognitio n. Left ear: Normal hearing thru 500Hz sloping to mild to moderately severe SNHL with good word recognitio n. Stable hearing levels AU Tympanomet ry: Right Ear:Type A Left Ear:Type A [id number] SHARMAINE MORIN, Curtis [place] [facility] [place] [address] [place] [address],[address] [address] 10/02/2025 15:13:54 10/03/2025 09:35:23 Sensorineural hearing loss of bilateral ears 257088632 H90.3 [id number] Audiologic al evaluation results:Ri ght ear:Normal hearing from 250 through 2000 Hz sloping to a moderate sensorineu ral hearing loss with excellent word recognitio n.Left ear:Normal hearing from 250 through 500 Hz sloping to a moderately severe sensorineu ral hearing loss with excellent word recognitio n. Tympanomet ry:Right Ear:Type CLeft Ear:Type A Health Concerns Section Related Observation LastModified by Organization Detai ls LastModified Time None Recorded Concern Status LastModified by Organization Details LastModified Time None Recorded Advance Directives Directive None Recorded Payers Insurance Date Sequence Insurance Name Policy Number Policy Guy Covered Member ID Guy Member ID Guarantor Name 07/31/2024 1 [place] [employer] Grayson Esteves [id number] Grayson Esteves 07/31/2024 1 [place] 104 Grayson Esteves [id number] Grayson Esteves 09/29/2025 2 [place] [id number] Grayson Esteves [id number] Grayson Esteves 07/31/2024 2 [place] 104 Grayson Esteves [id number] Grayson Esteves 09/29/2025 1 [place] Grayson Esteves [id number] Grayson Esteves Notes Date Note Type Note Provider Name and Address Organization Details Recorded Time 07/31/2024 text/html ROS as noted in the HPI 64-year-old male presents for yearly hearing screening. History of left-sided sudden sensorineural hearing loss with excellent response to oral steroid and intratympanic dexamethasone. MRI was negative for retrocochlear pathology. He has left-sided amplification only and has been doing very well with stable hearing. ANNE-MARIE MORENO MD [address] [place] [address], [address], [facility] 07/31/2024 16:57:50 10/02/2025 text/html Audiological Evaluation HPIReported by PatientHearing LossFor hearing loss perceived, patient reportshearing loss in both ears (left ear worse).TinnitusFor tinnitus reported, patient reportsleft ear.Use of amplification or other hearing devicesFor use of amplification or other hearing devices, patient reportshearing aid use in the left ear. Curtis MCKENZIE [address], [address], [facility] 10/02/2025 15:28:01
--- OUTSIDE RECORDS SUMMARY | 2025-10-03 13:24 | XMS_ITS | Continuity of Care Document ---
Author Organization [place] - [facility] [place] Address [address] [address] [place] [address] Assessment Encounter Date Assessment Date Assessment LastModified by Organization Details LastModified Time 10/02/2025 10/02/2025 Follow up with referring provider. [email or web address] Not available 10/02/2025 15:26:37 Plan of Treatment Reminders Order Date Submit Date Provider Last Modified By Organization Details Last Modified Time Details Appointments Establish ed 15 2025 03:15P Papo WASHINGTON PA-C Not available Not available Not available Lab None recorded. Referral None recorded. Procedures None recorded. Surgeries None recorded. Imaging None recorded. Medication Orders None recorded. Patient TargetsNo targets recorded. Patient InstructionsNo instructions recorded. Reason for Referral None Reported. Results Created Date Observation Date Name Description Value Unit Range Abnormal Flag Note LastModifiedBy Organization Detail LastModifiedTime 10/02/20 25 audio gram No observ ation record ed. BARCODE Not Available 2024 16:43:48 Result Notes None recorded. Problems Name Problem SNOMED Code Status Onset Date Resolution Date Notes Provider Name and Address Organization Details Recorded Time Sensorine ural hearing loss of bilateral ears 517464971 Active 2022 Sensorine ural hearing loss, bilateral ; Note: Date Diagnosed : 06/02/2023 10:18 AM (H90.3) Not Available [facility] 4 02:36:49 Tinnitus of left ear 14000977586 06 Active 2022 Tinnitus, left ear; Note: Date Diagnosed : 06/02/2023 11:04 AM (H93.12) Not Available [facility] 4 02:36:36 Subjectiv e tinnitus 55784633 Active 2022 Subjectiv e tinnitus; Note: Date Diagnosed : 06/29/2023 11:19 AM (388.31) Not Available [facility] 4 02:36:43 Asymmetri kapil sensorine ural hearing loss 966195146 Active 2022 Hearing loss: Sensorine ural hearing loss, asymmetri kapil; Note: Date Diagnosed : 06/29/2023 11:19 AM (389.16) Not Available [facility] 4 02:36:39 Sensorine ural hearing loss of bilateral ears 655067529 Active 2024 SHARMAINE MORIN, AuD 100 [facility],[address], [address] , [facility] 15:27:10 Problem Notes None recorded. Procedures Surgical History Date Name Laterality Status Provider Name and Address Organization Details Recorded Time 5 Air & Speech Audio with Tymps - 84875, 92576 & 44584 completed SHARMAINE MORIN, AuD 100 [facility],[address] [address], [place], [address], [facility] - [facility] 10/02/2025 15:26:37 4 Hearing Aid Fitting (V5011) completed GERARD DUQUE MA, [facility] 100 [facility],[address], [address], [facility] 09/25/2024 14:44:54 4 Air & Speech Audio with Tymps - 91782, 38345 & 82622 completed GERARD DUQUE MA, CCC-A 100 [facility],[address], [address], [facility] - [facility] [place] 07/31/2024 11:33:11 Imaging Results None recorded. Procedure Notes None recorded. Medical Equipment None Reported. Medications Name Sig Start Date Stop Date Status Note LastModified by Organization Details LastModified Time atorvasta tin 40 mg tablet TAKE 1 TABLET BY MOUTH EVERY DAY active Not Available Not Available No t Available prednison e 10 mg tablet by mouth 06/29 completed Medicati on ID: [id number] P rescribe d By Name: Emiliano decker M.D. Bra nd Name: predniso ne Send Method: E-Prescr [...] ICD10 Code Diagnosis IMO Codes Diagnosis Note [id number] Curtis MCKENZIE [address] [address] 10/02/2025 15:13:54 10/03/2025 09:35:23 Sensorineural hearing loss of bilateral ears [id number] H90.3 [id number] Audiologic al evaluation results:Ri ght ear:Normal hearing [...] by Organization Details LastModified Time None Recorded Payers Encounter Date Sequence Insurance Name Policy Number Policy Guy Covered Member ID Guy Member ID Guarantor Name 10/02/2025 2 [place] [id number] Grayson Esteves [id number] Grayson A Danielito 10/02/2025 1 [place] [employer] [place] Grayson Esteves [id number] Grayson A Danielito Notes Date Note Type Note Provider Name and Address Organization Details Recorded Time 10/02/2025 text/html Audiological Evaluation HPIReported by PatientHearing LossFor hearing loss perceived, patient reportshearing loss in both ears (left ear worse).TinnitusFor tinnitus reported, patient reportsleft ear.Use of amplification or other hearing devicesFor use of amplification or other hearing devices, patient reportshearing aid use in the left ear. SHARMAINE MORIN, [address] [address], [place], [address], [facility] - [facility] 10/02/2025 15:28:01
== END 2025-10-03 13:43 | disposition home or self-care (01) ==
LOC: HO.HUSH 13:02
PROVIDERS: PCP Internal Medicine; Visit Provider Urology
DX: C61 Malignant neoplasm of prostate (principal); R39.12 Poor urinary stream
CPT/HCPCS: 99214

== ENCOUNTER → 2025-10-03 13:02 | Outpatient (BNVA) | payer MEDICARE, BC, SELFPAY | PROVIDERS: PCP Internal Medicine; Visit Provider Urology | DX: C61 Malignant neoplasm of prostate (principal); N40.1 Benign prostatic hyperplasia with lower urinary tract symptoms; R39.12 Poor urinary stream | CPT/HCPCS: 51798; 99212 ==